=== PATIENT | male | born 1975 | race Caucasian/White ===

== ENCOUNTER → 2018-03-02 | Outpatient (CLI) | payer OTHER ==
[2018-03-02 18:26] LABS: ALT 60 U/L (21-72); AST 39 U/L (17-59); Albumin 4.5 g/dL (3.5-5.0); Alkaline Phosphatase 98 U/L (38-126); Anion Gap 15 mmol/L; Blood Urea Nitrogen 22 mg/dL (9-20); Calcium 9.8 mg/dL (8.4-10.2); Carbon Dioxide 25 mmol/L (22-30); Chloride 104 mmol/L (98-107); Cholesterol 254 mg/dL (<200); Glucose 93 mg/dL (74-99); HDL Cholesterol 34 mg/dL (40-60); Potassium 4.7 mmol/L (3.5-5.1); Sodium 144 mmol/L (137-145); Total Bilirubin 0.7 mg/dL (0.2-1.3); Total Protein 7.7 g/dL (6.3-8.2)
[2018-03-02 18:35] LABS: Basophils % (A) 0 %; Eosinophils # (A) 0.3 k/uL (0-0.7); Eosinophils % (A) 3 %; HCT 45.2 % (39.0-53.0); HGB 14.6 gm/dL (13.0-17.5); Lymphocytes # (A) 2.4 k/uL (1.0-4.8); Lymphocytes % (A) 25 %; MCH 26.9 pg (25.0-35.0); MCHC 32.2 g/dL (31.0-37.0); MCV 83.4 fL (80.0-100.0); Mean Platelet Volume 7.3; Monocytes # (A) 0.7 k/uL (0-1.0); Monocytes % (A) 7 %; Neutrophils # (A) 6.1 k/uL (1.3-7.7); Neutrophils % (A) 62 %; Platelet Count 256 k/uL (150-450); RBC 5.43 m/uL (4.30-5.90); RDW 13.6 % (11.5-15.5); WBC 9.7 k/uL (3.8-10.6)
[2018-03-02 18:42] LABS: T4, Free (Free Thyroxine) 0.99 ng/dL (0.78-2.19)
[2018-03-03 13:31] LABS: Triglycerides 616 mg/dL (<150)
== END ==
LOC: MMGSC 15:10
PROVIDERS: ATTEND Family Medicine
DX: E55.9 Vitamin D deficiency, unspecified (principal); R07.89 Other chest pain; G47.30 Sleep apnea, unspecified; R63.5 Abnormal weight gain
CPT/HCPCS: 36415; 80053; 80061; 82306; 83721; 84439; 84443; 85025

== ENCOUNTER → 2018-03-03 | Outpatient (CLI) | payer OTHER ==
--- NOTE | 2018-03-03 13:57 | XR ---
EXAMINATION TYPE: XR chest 2V DATE OF EXAM: 03/03/2018 COMPARISON: NONE HISTORY: Chest pain a few days ago. TECHNIQUE: Frontal and lateral views of the chest are obtained. FINDINGS: Exam is slightly suboptimal secondary to patient's large body habitus. There is no focal a ir space opacity, pleural effusion, or pneumothorax seen. The cardiac silhouette size is within norm al limits. The osseous structures are intact. IMPRESSION: No acute cardiopulmonary process.
== END | disposition home or self-care (01) ==
LOC: RADXRMAIN 13:33
PROVIDERS: ATTEND Family Medicine
DX: R07.89 Other chest pain (principal)
CPT/HCPCS: 71046

== ENCOUNTER → 2018-03-08 | Outpatient (CLI) | payer OTHER ==
[~2018-03-08] MED LIST: REGADENOSON 0.4 MG/5 ML SYRINGE IV ONE
--- NOTE | 2018-03-08 15:27 | NM ---
EXAMINATION TYPE: NM stress lexiscan cardiolite DATE OF EXAM: 03/08/2018 COMPARISON: NONE HISTORY: 42-year-old male atypical chest pain, abnormal EKG TECHNIQUE: After the intravenous administration of 9.9 mCi Tc 99m Sestamibi - Cardiolite resting SPE CT images acquired 50 minutes post injection. The patient received 0.4mg Lexiscan, 26.4 mCi Tc 99m Sestamibi - Stress images obtained [address] injection FINDINGS: Review of stress and rest SPECT images demonstrates decreased perfusion along the inferior and infero lateral wall that appears fixed. Prominent adjacent GI activity is present. On gated analysis, diffic ult to exclude some hypokinesis here. Estimated left ventricular ejection fraction of 52 %. TID is c alculated at 0.95, within normal limits. IMPRESSION: Fixed perfusion abnormality along the inferior and inferolateral wall could represent old infarct or artifact related to prominent adjacent GI activity. Further clinical and EKG correlation recommended.
--- NOTE | 2018-03-09 11:07 | EST ---
EXERCISE STRESS DATE OF STUDY: 03/08/2018 AGE: 42 SEX: Male HT: 5 feet 11 inches WT: 305 pounds PROTOCOL: Lexiscan, Cardiolite STAGE: DURATION OF EXERCISE: HEART RATE REST: 82 BLOOD PRESSURE REST: 141/86 MAXIMUM HEART RATE ACHIEVED: 111 MAXIMUM BLOOD PRESSURE: 142/83 85% MPHR: 150 100% MPHR: 177 METS: INDICATIONS: Chest pain, abnormal EKG. CLINICAL INFORMATION: STRESS DATA: Pre-testing physical examination showed a heart rate of 82, blood pressure 141/86 mmHg. Baseline EKG shows sinus mechanism. Lexiscan 0.4 mg was given to the patient over 15 seconds per protocol. Maximum heart rate was 111 beats per minute and maximum blood pressure was 142/83 mmHg. Clinically the patient did not have any symptoms of chest pain or discomfort during the testing or in the recovery and the EKG did not show any significant ST or T-wave abnormalities consistent with ischemia. CONCLUSION: 1. Non-diagnostic electrocardiogram stress testing in response to Lexiscan. 2. Please follow up on the Cardiolite portion on separate report from the radiology department. MMODL / IJN: [id number] /
== END ==
LOC: RADNMMAIN 08:09
PROVIDERS: ATTEND Family Medicine
DX: R07.89 Other chest pain (principal); R94.31 Abnormal electrocardiogram [ECG] [EKG]
CPT/HCPCS: 93017; 78452; A9500; J2785

== ENCOUNTER → 2018-07-06 | Outpatient (CLI) | payer OTHER ==
--- NOTE | 2018-07-06 16:13 | PN ---
PROGRESS NOTE DATE OF SERVICE: 07/06/2018 This patient is a 42-year-old gentleman who has been followed in the sleep center for treatment of obstructive sleep apnea-hypopnea syndrome. Patient is successfully continuing to use his CPAP equipment every night for the whole night. No snoring with the machine. No sleepiness during the day. [place] Sleepiness Scale today is 12, still a little bit increased. I checked his CPAP unit. Usage is 100% of the time, average 7.6 hours per night. Pressure is 10.2 cm of water. The machine is in automatic regimen with range of pressure 9 to 20. Apnea-hypopnea index reading is only 0.1. MEDICATIONS: None. PHYSICAL EXAMINATION: GENERAL A pleasant gentleman in no distress. VITAL SIGNS: BP 113/65, HR 88, RR 16, height 5 feet 9 inches, weight 291, BMI 42.9. Temperature 98.3. Oxygen saturation at room air 97%. HEENT: PERRLA, EOMI. Evaluation of oropharynx showed tongue protrudes midline; extremely low position of soft palate. NECK: Supple. No JVD. Thyroid is not palpable. LUNGS: Clear to percussion and to auscultation. Good air exchange. No wheezing or rhonchi. HEART: S1, S2 regular. No murmurs, gallops or rubs. ABDOMEN: Obese. EXTREMITIES : No clubbing or cyanosis. PRINCIPAL PLANNER: Awake, alert, and oriented X3. Cranial nerves 2 to 7 intact. There is no fasciculation or atrophy. noted. No focal deficits observed. IMPRESSION: 1. Moderate obstructive sleep apnea-hypopnea syndrome, fully under control with CPAP, average pressure 10.2 cm of water. Patient demonstrated 100% compliance with treatment, benefitting from treatment. 2. Obesity. 3. Back problems. 4. Status post tonsillectomy. 5. Status post nasal surgery for nasal septum deviation. PLAN: 1. Patient will continue to use CPAP equipment every night with the same regimen. 2. Losing weight. 3. Sleep hygiene with regular time in bed for at least 8 hours. 4. No driving if feeling any sleepiness. 5. I will maintain prescription for all necessary CPAP supplies. 6. Follow-up visit in one year or earlier if patient has any problems. Thank you very much for allowing me to participate in the management of your patient. Sincerely, Lm Barclay MD, PhD, FAASM Diplomat of [employer] [employer] [facility] [place] MMODL / NAKULN: [id number] /
== END | disposition home or self-care (01) ==
LOC: SLEEP 14:25
PROVIDERS: ATTEND Internal Medicine
DX: G47.33 Obstructive sleep apnea (adult) (pediatric) (principal); E66.9 Obesity, unspecified; Z68.41 Body mass index [BMI] 40.0-44.9, adult; Z90.89 Acquired absence of other organs; Z99.89 Dependence on other enabling machines and devices; Z98.890 Other specified postprocedural states

== ENCOUNTER → 2018-12-08 | Outpatient (CLI) | payer OTHER ==
--- NOTE | 2018-12-08 14:39 | XR ---
EXAMINATION TYPE: XR lumbar spine 2 or 3V DATE OF EXAM: 12/08/2018 CLINICAL HISTORY: Chronic low back pain. TECHNIQUE: Frontal and lateral images of the lumbar spine are obtained. COMPARISON: None FINDINGS: There are 5 lumbar type vertebral bodies identified. The lumbar spine shows straightened alignment without evidence of acute fracture or dislocation. Vertebral body heights and disk space he ights are within normal limits. The overlying soft tissue appears unremarkable. IMPRESSION: Straightening of lumbar spine otherwise unremarkable study.
== END | disposition home or self-care (01) ==
LOC: RADXRMAIN 13:56
PROVIDERS: ATTEND Family Medicine
DX: M54.5 Low back pain (principal)
CPT/HCPCS: 72100

== ENCOUNTER → 2018-12-08 | Outpatient (CLI) | payer OTHER ==
[2018-12-08 14:34] LABS: HCT 40.2 % (39.0-53.0); HGB 12.5 gm/dL (13.0-17.5); MCH 26.8 pg (25.0-35.0); MCHC 31.2 g/dL (31.0-37.0); MCV 85.8 fL (80.0-100.0); Mean Platelet Volume 6.5; Platelet Count 296 k/uL (150-450); RBC 4.68 m/uL (4.30-5.90); RDW 13.6 % (11.5-15.5); WBC 8.8 k/uL (3.8-10.6)
[2018-12-08 20:00] LABS: Albumin/Globulin Ratio 2.22 (1.60-3.17); Anion Gap 5.8 mmol/L (4.00-12.00); Carbon Dioxide 28.2 mmol/L (21.6-31.8); Globulin 1.8 g/dL (1.6-3.3); Potassium 4.5 mmol/L (3.5-5.5); Total Bilirubin 0.3 mg/dL (0.2-1.2); Total Protein 5.8 g/dL (6.2-8.2)
== END | disposition home or self-care (01) ==
LOC: LABWHC1 13:05
PROVIDERS: ATTEND Physical Medicine & Rehabilitation
DX: T39.1X1A Poisoning by 4-Aminophenol derivatives, accidental (unintentional), initial encounter (principal)
CPT/HCPCS: 36415; 80053; 85027

== ENCOUNTER → 2019-03-06 | Outpatient (CLI) | payer OTHER | END | disposition home or self-care (01) | LOC: RADXRMAIN 16:22 | PROVIDERS: ATTEND Pediatrics | DX: Z53.9 Procedure and treatment not carried out, unspecified reason (principal) ==

== ENCOUNTER 2019-05-24 07:34 | Day surgery (SDC) | payer OTHER ==
[2019-05-22 17:21] VITALS: BMI 41.8
--- NOTE | 2019-05-23 22:42 | P.GSHP ---
History of Present Illness H&P Date: 05/24/19 CHIEF COMPLAINT: Rectal bleeding HISTORY OF PRESENT ILLNESS: The patient is a 43-year-old male who presents with rectal bleeding. Lower endoscopy was offered for further evaluation and management. PAST MEDICAL HISTORY: Please see list. PAST SURGICAL HISTORY: Please see list. MEDICATIONS: Please see list. ALLERGIES: Please see list. SOCIAL HISTORY: No illicit drug use FAMILY HISTORY: No reports of Crohn disease or ulcerative colitis. REVIEW OF ORGAN SYSTEMS: CONSTITUTIONAL: No reports of fevers or chills. PHYSICAL EXAM: VITAL SIGNS: Stable GENERAL: Well-developed pleasant in no acute distress. HEENT: No scleral icterus. Extraocular movements grossly intact. Moist buccal mucosa. NECK: Supple without lymphadenopathy. CHEST: Unlabored respirations. Equal bilateral excursions. CARDIOVASCULAR: Regular rate and rhythm. Distal 2+ pulses. ABDOMEN: Soft, nontender, nondistended. MUSCULOSKELETAL: No clubbing, cyanosis, or edema. ASSESSMENT: 1. Rectal bleeding PLAN: 1. Recommend proceeding with a lower endoscopy Past Medical History Past Medical History: Hyperlipidemia, Musculoskeletal Disorder, Osteoarthritis (OA), Sleep Apnea/CPAP/BIPAP Additional Past Medical History / Comment(s): umbilical hernia, constipation, Multiple hereditary exostoses History of Any Multi-Drug Resistant Organisms: None Reported Additional Past Surgical History / Comment(s): "benign blood tumor removed from rt leg", Past Anesthesia/Blood Transfusion Reactions: Motion Sickness Smoking Status: Never smoker - Past Family History Sister(s) Family Medical History: Cancer Mother Family Medical History: Deep Vein Thrombosis (DVT), Pulmonary Embolus Medications and Allergies Home Medications Medication Instructions Recorded Confirmed Type Atorvastatin [Lipitor] 40 mg PO W/SUPPER 05/22/19 05/22/19 History Cholecalciferol (Vitamin D3) 5,000 unit PO DAILY 05/22/19 05/22/19 History [Vitamin D3] Fenofibrate [Lofibra] 160 mg PO W/SUPPER 05/22/19 05/22/19 History Ibuprofen 800 mg PO BID PRN 05/22/19 05/22/19 History Multivitamins, Thera [Multivitamin 1 tab PO DAILY 05/22/19 05/22/19 History (formulary)] traMADol HCL [Ultram] 50 mg PO QID 05/22/19 05/22/19 History Allergies Allergy/AdvReac Type Severity Reaction Status Date / Time No Known Allergies Allergy Verified 05/22/19 17:12
[~2019-05-24 07:34] MED LIST changes: +LACTATED RINGERS 1,000 ML IV SCH; +LIDOCAINE 1% 20 ML VIAL (10MG/ML) FOR IV START INTRADERMA PRN; -REGADENOSON 0.4 MG/5 ML SYRINGE IV ONE
[2019-05-24 07:47] VITALS: TEMP 97
[2019-05-24] MEDS ORDERED: PROPOFOL 10 MG/ML 20 ML VIAL IV ONE (08:21)
--- NOTE | 2019-05-24 08:46 | P.PCN ---
Date of Procedure: 05/24/19 Description of Procedure: PREOPERATIVE DIAGNOSIS: Rectal bleeding Change in bowel habits POSTOPERATIVE DIAGNOSIS: Rectal bleeding Change in bowel habits Diverticulosis, scattered Anal fissure, chronic OPERATION: Colonoscopy to the ileocecal valve and appendiceal orifice. SURGEON: Geraldine Kincaid MD. ANESTHESIA: MAC. INDICATIONS: The patient is a 43-year-old male who presents for colonoscopy screening. Benefits and risks were described and informed consent was obtained. DESCRIPTION OF PROCEDURE: The patient had undergone Suprep. He had been brought into the operating room and laid in the left lateral decubitus position. After adequate intravenous sedation, the rectum was examined with 2% lidocaine jelly. No external hemorrhoids were encountered. The rectal tone was within normal limits. No lesions were palpated in the rectal vault. An Olympus colonoscope was advanced until the ileocecal valve and appendiceal orifice were clearly viewed. The prep was excellent with clear visualization of the mucosal folds. The scope was removed with visualization of each mucosal fold. Scattered diverticulosis was encountered. No colonic polyps were found. No evidence of focal colitis was found. Retroflexion of the scope demonstrated grade 1 internal hemorrhoids without active bleeding or inflammation. A small anal fissure 2 were identified. The colon was desufflated. The patient had tolerated the procedure well. Withdrawal time was over 6 minutes. FINDINGS: Aronchick preparation quality scale 1 (1-5) Internal hemorrhoids, grade 1 No external prolapsed hemorrhoids. No arteriovenous malformations. No adenomatous polyps. No focal colitis. Anal fissure 2 chronic RECOMMENDATIONS: Lower endoscopy at age 49, 2023 Plan - Discharge Summary Discharge Rx Participant: No New Discharge Prescriptions: No Action traMADol HCL [Ultram] 50 mg PO QID Fenofibrate [Lofibra] 160 mg PO W/SUPPER Atorvastatin [Lipitor] 40 mg PO W/SUPPER Ibuprofen 800 mg PO BID PRN PRN Reason: Pain Multivitamins, Thera [Multivitamin (formulary)] 1 tab PO DAILY Cholecalciferol (Vitamin D3) [Vitamin D3] 5,000 unit PO DAILY Discharge Medication List Atorvastatin [Lipitor] 40 mg PO W/SUPPER 05/22/19 [History] Cholecalciferol (Vitamin D3) [Vitamin D3] 5,000 unit PO DAILY 05/22/19 [History] Fenofibrate [Lofibra] 160 mg PO W/SUPPER 05/22/19 [History] Ibuprofen 800 mg PO BID PRN 05/22/19 [History] Multivitamins, Thera [Multivitamin (formulary)] 1 tab PO DAILY 05/22/19 [History] traMADol HCL [Ultram] 50 mg PO QID 05/22/19 [History] Follow up Appointment(s)/Referral(s): Geraldine Kincaid MD [STAFF PHYSICIAN] - 06/12/19 Patient Instructions/Handouts: Anal Fissure (DC), Diverticulosis Diet (GEN), Diverticulosis (DC) Activity/Diet/Wound Care/Special Instructions: Repeat colonoscopy at the age of 49 Discharge Disposition: HOME SELF-CARE
[2019-05-24 09:02] VITALS: BP 108/68; PULSE 91; RESP 16
== END 2019-05-24 09:36 | disposition home or self-care (01) ==
LOC: ORWHC2ENDO 07:34
PROVIDERS: ATTEND Surgery Plastic and Reconstructive Surgery
DX: Z12.11 Encounter for screening for malignant neoplasm of colon (principal); K57.30 Diverticulosis of large intestine without perforation or abscess without bleeding; K64.0 First degree hemorrhoids; K60.2 Anal fissure, unspecified; E78.5 Hyperlipidemia, unspecified; M19.90 Unspecified osteoarthritis, unspecified site; G47.30 Sleep apnea, unspecified; Z99.89 Dependence on other enabling machines and devices; Z79.1 Long term (current) use of non-steroidal anti-inflammatories (NSAID); Z79.899 Other long term (current) drug therapy; E66.01 Morbid (severe) obesity due to excess calories; Z68.41 Body mass index [BMI] 40.0-44.9, adult
CPT/HCPCS: J2704; G0121

== ENCOUNTER → 2019-05-28 | Outpatient (CLI) | payer OTHER ==
--- NOTE | 2019-05-28 21:47 | CT ---
EXAMINATION TYPE: CT abdomen pelvis w con DATE OF EXAM: 05/28/2019 COMPARISON: None. HISTORY: Umbilical hernia with tenderness. CT DLP: 3888 mGycm, Automated Exposure Control for Dose Reduction was Utilized. CONTRAST: CT scan of the abdomen and pelvis is performed with oral and with IV Contrast, patient injected with 100 mL of Isovue 300. FINDINGS: LUNG BASES: No significant abnormality is appreciated. LIVER/GB: Dependent small calcified gallstone. Diffuse fatty infiltration of liver. PANCREAS: No significant abnormality is seen. SPLEEN: No significant abnormality is seen. ADRENALS: No significant abnormality is seen. KIDNEYS: No renal stones or hydronephrosis. Right-sided inferior pelvic phlebolith. BOWEL: Oral contrast does not reach terminal ileum making evaluation of distal bowel slightly subopti mal. No suspicious small and large bowel dilatation. PROSTATE/SEMINAL VESICLES: No gross abnormality seen. LYMPH NODES: No greater than 1cm abdominal or pelvic lymph nodes are appreciated. OSSEOUS STRUCTURES: Mild to moderate narrowing with mild spurring both hip joints is seen somewhat pr ominent for patient's age. OTHER: There is moderate-sized narrow neck paraumbilical hernia containing fat and tiny mesenteric ve ssels. No significant ill-defined fluid or fat stranding is noted. IMPRESSION: Moderate size Paraumbilical hernia without suspicious fat stranding or fluid to suggest i ncarceration or inflammation.
== END | disposition home or self-care (01) ==
LOC: RADCTMAIN 15:44
PROVIDERS: ATTEND Surgery Plastic and Reconstructive Surgery
DX: K42.9 Umbilical hernia without obstruction or gangrene (principal)
CPT/HCPCS: 74177; Q9967

== ENCOUNTER → 2019-07-16 | Outpatient (CLI) | payer OTHER | END | disposition home or self-care (01) | LOC: LABPAT 10:27 | PROVIDERS: ATTEND Surgery Plastic and Reconstructive Surgery | DX: Z01.810 Encounter for preprocedural cardiovascular examination (principal) | CPT/HCPCS: 93005 ==

== ENCOUNTER 2019-07-20 07:31 | Day surgery (SDC) | payer OTHER ==
[2019-07-18 17:54] VITALS: BMI 41.8
--- NOTE | 2019-07-20 06:19 | P.GSHP ---
History of Present Illness H&P Date: 07/20/19 CHIEF COMPLAINT: Cholecystitis HISTORY OF PRESENT ILLNESS: The patient is a 43-year-old male who presents with history of epigastric including right upper quadrant abdominal pain. He underwent diagnostic studies for her gallbladder. Separately clinical picture was consistent with cholecystitis. Now he presents for surgical intervention. PAST MEDICAL HISTORY: Please see list PAST SURGICAL HISTORY: Please see list MEDICATIONS: Please see list ALLERGIES: Please see list SOCIAL HISTORY: Please see list FAMILY HISTORY: Pertinent for gallbladder disease REVIEW OF ORGAN SYSTEMS: CONSTITUTIONAL: No reports of fevers or chills. HEENT: Denies any troubles with the vision or hearing. PHYSICAL EXAM: VITAL SIGNS: Afebrile vital signs stable GENERAL: Well-developed pleasant in no acute distress. HEENT: No scleral icterus. Extraocular movements grossly intact. Moist buccal mucosa. NECK: Supple without lymphadenopathy. CHEST: Unlabored respirations. Equal bilateral excursions. CARDIOVASCULAR: Regular rate regular rhythm rhythm. Distal 2+ pulses. ABDOMEN: Soft, nondistended. Tender along the epigastrium and right upper quadrant. MUSCULOSKELETAL: No clubbing, cyanosis, or edema. NEURO: Cranial nerves II to XII within normal limits. No focal or lateralizing signs. PSYCH: Alert and oriented to person, place and time. SKIN: Well-perfused good skin turgor. ASSESSMENT: 1. Epigastric and right upper quadrant abdominal pain 2. Chronic cholecystitis 3. Symptomatic gallstones. PLAN: 1. Will need a robotic cholecystectomy possible open. Benefits and risks were described. 2. Heparin for DVT prophylaxis 5000 units. 3. Antibiotic prophylaxis. Past Medical History Past Medical History: Hyperlipidemia, Musculoskeletal Disorder, Osteoarthritis (OA), Sleep Apnea/CPAP/BIPAP Additional Past Medical History / Comment(s): Umbilical hernia, constipation, Multiple hereditary exostosis (benign bone tumors), uses auto-pap, varicose veins. History of Any Multi-Drug Resistant Organisms: None Reported Additional Past Surgical History / Comment(s): "benign blood tumor removed from rt leg", nasal repair surg, colonoscopy Past Anesthesia/Blood Transfusion Reactions: Motion Sickness Smoking Status: Never smoker - Past Family History Sister(s) Family Medical History: Cancer Mother Family Medical History: Deep Vein Thrombosis (DVT), Pulmonary Embolus Medications and Allergies Home Medications Medication Instructions Recorded Confirmed Type Atorvastatin [Lipitor] 40 mg PO W/SUPPER 05/22/19 07/18/19 History Cholecalciferol (Vitamin D3) 5,000 unit PO DAILY 05/22/19 07/18/19 History [Vitamin D3] Fenofibrate [Lofibra] 160 mg PO W/SUPPER 05/22/19 07/18/19 History Ibuprofen 800 mg PO BID PRN 05/22/19 07/18/19 History Multivitamins, Thera [Multivitamin 1 tab PO DAILY 05/22/19 07/18/19 History (formulary)] Topiramate [Topamax] 50 mg PO HS 07/18/19 07/18/19 History oxyCODONE-APAP 5-325MG [Percocet 1 tab PO QID PRN 07/18/19 07/18/19 History 5-325 mg] Allergies Allergy/AdvReac Type Severity Reaction Status Date / Time No Known Allergies Allergy Verified 07/18/19 17:38
[~2019-07-20 07:31] MED LIST changes: +DEXAMETHASONE SOD PHOSPHATE 10 MG/ML 1 ML VIAL IV ONE; +HEPARIN SODIUM,PORCINE 5,000 UNIT/ML 1 ML VIAL SQ ONE; +INDOCYANINE GREEN 25 MG VIAL IV STA; -LACTATED RINGERS 1,000 ML IV SCH; -LIDOCAINE 1% 20 ML VIAL (10MG/ML) FOR IV START INTRADERMA PRN; +MIDAZOLAM 2 MG/2 ML VIAL IV PRN; +ONDANSETRON 4 MG/2 ML VIAL IVP ONE; +ceFAZolin 3 GM in SODIUM CHLORIDE 0.9% 100 ML IVPB ONE
[2019-07-20] MEDS: LACTATED RINGERS 1,000 ML IV SCH ×2 (08:05→08:29)
[2019-07-20] MEDS ORDERED: LIDOCAINE 1% 20 ML VIAL (10MG/ML) FOR IV START INTRADERMA ONE (08:06)
[2019-07-20] MEDS ORDERED: SCOPOLAMINE 1.5MG/72HR PATCH TRANSDERM STA (08:20)
[2019-07-20] MEDS ORDERED: SCOPOLAMINE 1.5MG/72HR PATCH TRANSDERM ONE (08:22)
[2019-07-20 08:28] LABS: Basophils % (A) 0 %; Eosinophils # (A) 0.3 k/uL (0-0.7); Eosinophils % (A) 4 %; HCT 44.3 % (39.0-53.0); HGB 14.3 gm/dL (13.0-17.5); Lymphocytes # (A) 2.1 k/uL (1.0-4.8); Lymphocytes % (A) 29 %; MCH 27.7 pg (25.0-35.0); MCHC 32.2 g/dL (31.0-37.0); MCV 85.8 fL (80.0-100.0); Mean Platelet Volume 6.8; Monocytes # (A) 0.4 k/uL (0-1.0); Monocytes % (A) 6 %; Neutrophils # (A) 4.1 k/uL (1.3-7.7); Neutrophils % (A) 57 %; Platelet Count 301 k/uL (150-450); RBC 5.16 m/uL (4.30-5.90); RDW 15.3 % (11.5-15.5); WBC 7.3 k/uL (3.8-10.6)
[2019-07-20] MEDS ORDERED: LIDOCAINE 1% INJ 10MG/ML (20 ML MDV) ONE (08:28)
[2019-07-20] MEDS ORDERED: GLYCOPYRROLATE 0.2 MG/ML 2 ML VIAL ONE (08:28)
[2019-07-20] MEDS ORDERED: PROPOFOL 10 MG/ML 20 ML VIAL IV ONE (08:28)
[2019-07-20] MEDS ORDERED: NEOSTIGMINE 1 MG/ML 10 ML VIAL ONE (08:28)
[2019-07-20] MEDS ORDERED: INDOCYANINE GREEN 25 MG VIAL IV ONE (08:28)
[2019-07-20] MEDS ORDERED: ROCURONIUM BROMIDE 10 MG/ML 10 ML VIAL IV ONE (08:28)
[2019-07-20] MEDS ORDERED: fentaNYL (PF) 50 MCG/ML 2 ML AMP ONE (08:28)
[2019-07-20] MEDS ORDERED: SUCCINYLCHOLINE CHLORIDE 100 MG/5 ML SYR IV ONE (08:28)
[2019-07-20] MEDS ORDERED: MIDAZOLAM 2 MG/2 ML VIAL ONE (08:28)
[2019-07-20 08:37] LABS: ALT 60 U/L (21-72); AST 38 U/L (17-59); African American GFR (CKD) >90 (>60 ml/min/1.73 sqM); Albumin 4.5 g/dL (3.5-5.0); Alkaline Phosphatase 57 U/L (38-126); Anion Gap 12 mmol/L; Blood Urea Nitrogen 22 mg/dL (9-20); Calcium 9.6 mg/dL (8.4-10.2); Carbon Dioxide 21 mmol/L (22-30); Chloride 111 mmol/L (98-107); Glucose 105 mg/dL (74-99); Potassium 4.2 mmol/L (3.5-5.1); Sodium 144 mmol/L (137-145); Total Bilirubin 0.5 mg/dL (0.2-1.3); Total Protein 7.6 g/dL (6.3-8.2)
[2019-07-20] MEDS ORDERED: BUPIVACAIN-EPI 0.25%-1:200,000 30 ML VIAL SQ ONE (08:49)
--- NOTE | 2019-07-20 10:11 | P.OP ---
Date of Procedure: 07/20/19 Description of Procedure: SURGEON: GERALDINE KINCAID MD PREOPERATIVE DIAGNOSES: 1. Symptomatic gallstones 2. Morbid obesity due to excess calories, BMI 41.6 3. Chronic cholecystitis 4. Hypertensive heart disease 5. Chronic pain syndrome 6. Obstructive sleep apnea POSTOPERATIVE DIAGNOSES: 1. Symptomatic gallstones 2. Morbid obesity due to excess calories, BMI 41.6 3. Chronic cholecystitis 4. Hypertensive heart disease 5. Chronic pain syndrome 6. Obstructive sleep apnea 7. Fatty liver disease with hepatomegaly OPERATION: Robotic-assisted da Bill Xi laparoscopic lysis of adhesions over 30 minutes Robotic-assisted da Bill Xi laparoscopic cholecystectomy, multiport with FIREFLY ESTIMATED BLOOD LOSS: 20 mL. SPECIMENS REMOVED: Gallbladder. COMPLICATIONS: None. OPERATIVE FINDINGS: 1. Chronic cholecystitis 2. Console time 41 minutes INDICATIONS: The patient is a 43-year-old male who presents with gallstones. Surgical intervention with a laparoscopic cholecystectomy was described at length including injury to the biliary tree, bleeding, infection, need for further surgery. Informed consent was obtained. Robotic assisted laparoscopic approach was described. Benefits and risks of the procedure including but not limited to bleeding, infection, injury to the biliary tree was described. Informed consent was obtained. DESCRIPTION OF PROCEDURE: Patient was brought to the operating room, placed in supine position. After general induction, the abdomen had been prepped and draped in standard sterile fashion. The robotic da Bill XI system was primed. After a timeout protocol was performed, the patient had been prepped and draped in standard sterile fashion. The patient was injected with indocyanine green. A 5 mm 0 degrees laparoscopic trocar entry was performed along the left upper quadrant. The abdomen insufflated to 15 mmHg pressure which was tolerated well. Diagnostic laparoscopy demonstrated no injury to bowel viscera or mesentery. The liver surface was unremarkable. Next, two 8 mm robotic ports were placed along the right upper abdomen. The camera 8-mm port was maintained along the epigastrium. Another 8 mm port was placed along the left upper abdominal wall after exchanging the 5 mm port. Please note that the ports were placed at least 10 to 15 cm away from the target anatomy of the gallbladder. The robot was docked along the left lateral abdomen. The patient was repositioned in reverse Trendelenburg position. Using a grasper for arm 3, a grasper for arm 4, including hook cautery for arm 1, the robotic system was docked and primed as described. Instruments were interchanged by the financial legal assistant including hook cautery, Bovie cautery and clip appliers. I had sat at the console. The liver was moderately enlarged limiting with fatty liver disease adding moderate complexity to the case with exposure. Additionally moderate omental adhesions to the gallbladder body and infunbidulum was performed for 30 minutes for lysis of adhesions. A dome down technique was performed. The gallbladder fundus was retracted over the dome of the liver. Initial attention was brought to the infundibulum which was gently retracted in the inferior lateral approach. Using a grasper, the cystic duct including the cystic artery was carefully skeletonized. FIREFLY was used to identify the cystic artery and cystic structures. A critical view of safety was obtained. Large PLASTIC clips were used throughout the entire case. Using a clip chief of safety and protection 2 clips were placed proximally, and 1 clip was placed between the infundibulum and cystic duct and divided using cautery. Next, the cystic artery was similarly clipped and cauterized. Electro-Bovie cautery was used to remove the gallbladder from the hepatic fossa. Hemostasis was checked and found to be adequate. The robot was undocked. I re-scrubbed into the case. Using a 10 mm Endo Catch bag via the left upper quadrant incision, the specimen was removed from the abdominal cavity. All pneumoperitoneum instruments were evacuated from the abdominal cavity. The incisions were reapproximated using 4-0 Monocryl in an interrupted subcuticular fashion. Fascial defects were less than 8 mm in size. Please note along the trocar sites, local anesthetic was placed as a field block prior to insertion of all instruments. Liquid glue was applied to the skin. At the end of the procedure needle, sponge, and instrument count had been verified correct by the surgical services tech. The patient was transferred to postanesthesia care unit in stable condition. Intraoperative films were shared with the patient's family who were very pleased with the level of care. COMPLEXITY: Moderate complexity added for limited view from severe hepatomegaly and careful dissection using FIREFLY. Case time extended over 30 minutes with lysis of adhesions for removal of the gallbladder. Plan - Discharge Summary Discharge Rx Participant: Yes New Discharge Prescriptions: New Ibuprofen 800 mg PO Q8HR PRN #30 tablet PRN Reason: Pain No Action Fenofibrate [Lofibra] 160 mg PO W/SUPPER Atorvastatin [Lipitor] 40 mg PO W/SUPPER Ibuprofen 800 mg PO BID PRN PRN Reason: Pain Multivitamins, Thera [Multivitamin (formulary)] 1 tab PO DAILY Cholecalciferol (Vitamin D3) [Vitamin D3] 5,000 unit PO DAILY Topiramate [Topamax] 50 mg PO HS oxyCODONE-APAP 5-325MG [Percocet 5-325 mg] 1 tab PO QID PRN PRN Reason: Pain Discharge Medication List Atorvastatin [Lipitor] 40 mg PO W/SUPPER 05/22/19 [History] Cholecalciferol (Vitamin D3) [Vitamin D3] 5,000 unit PO DAILY 05/22/19 [History] Fenofibrate [Lofibra] 160 mg PO W/SUPPER 05/22/19 [History] Ibuprofen 800 mg PO BID PRN 05/22/19 [History] Multivitamins, Thera [Multivitamin (formulary)] 1 tab PO DAILY 05/22/19 [History] Topiramate [Topamax] 50 mg PO HS 07/18/19 [History] oxyCODONE-APAP 5-325MG [Percocet 5-325 mg] 1 tab PO QID PRN 07/18/19 [History] Ibuprofen 800 mg PO Q8HR PRN #30 tablet 07/20/19 [Rx] Follow up Appointment(s)/Referral(s): Geraldine Kincaid MD [STAFF PHYSICIAN] - 07/24/19 Patient Instructions/Handouts: *Surgery [facility] - Scopalamine Patch Instructions, Laparoscopic Cholecystectomy (DC) Activity/Diet/Wound Care/Special Instructions: No lifting over 10 pounds for 10 days, 07/30/19. May shower. No bathtub soaks for 10 days until 07/30/19. Low fat diet Discharge Disposition: HOME SELF-CARE
[2019-07-20 10:21] VITALS: TEMP 97.8
[2019-07-20] MEDS: HYDROmorphone 0.5 MG/0.5 ML SYRINGE IVP PRN ×2 (10:28→10:36)
[2019-07-20] MEDS ORDERED: LACTATED RINGERS 1,000 ML IV ONE (10:56)
[2019-07-20] MEDS ORDERED: TAMSULOSIN 0.4 MG CAP.ER.24H PO ONE (11:00)
[2019-07-20] MEDS ORDERED: oxyCODONE-APAP 5-325MG 1 EACH TAB PO ONE (12:05)
[2019-07-20 12:45] VITALS: BP 125/79; PULSE 83; RESP 18
== END 2019-07-20 12:41 | disposition home or self-care (01) ==
LOC: OR 07:31
PROVIDERS: ATTEND Surgery Plastic and Reconstructive Surgery
DX: K80.10 Calculus of gallbladder with chronic cholecystitis without obstruction (principal); K66.0 Peritoneal adhesions (postprocedural) (postinfection); G47.33 Obstructive sleep apnea (adult) (pediatric); E66.01 Morbid (severe) obesity due to excess calories; G89.4 Chronic pain syndrome; I11.9 Hypertensive heart disease without heart failure; K76.0 Fatty (change of) liver, not elsewhere classified; Z68.41 Body mass index [BMI] 40.0-44.9, adult; Z79.899 Other long term (current) drug therapy; Z90.49 Acquired absence of other specified parts of digestive tract; E78.5 Hyperlipidemia, unspecified; M19.90 Unspecified osteoarthritis, unspecified site; Z99.89 Dependence on other enabling machines and devices; Z84.89 Family history of other specified conditions; Z79.891 Long term (current) use of opiate analgesic
CPT/HCPCS: 88304; 80053; 85025; 47562; 49329; J2250; J1644; J1100; J2710; J0690; J2405; J2001; J3010; J0330; J2704; J1170

== ENCOUNTER 2020-11-26 16:26 | Inpatient (IN) | payer OTHER ==
[2020-11-26] MEDS ORDERED: SODIUM CHLORIDE 0.9% 500 ML 500 ML IV STA (16:49)
--- NOTE | 2020-11-26 17:45 | ED ---
SOB HPI - General Chief Complaint: Shortness of Breath Stated Complaint: SOB Time Seen by Provider: 11/26/20 16:49 Source: patient Mode of arrival: wheelchair Limitations: no limitations - History of Present Illness Initial Comments: 45-year-old male presenting to the emergency department with a chief complaint of shortness of breath. Patient states he's developed shortness of breath for the past several months but yesterday he felt lightheaded and short of breath after he was going upstairs. Never lost consciousness. He states ever since yesterday, he has developed increased dyspnea on exertion. Denies any associated shortness of breath, dizziness, diaphoretic episodes, gait instability, blurry vision, one-sided weakness or paresthesias. Denies history of smoking or asthma. Denies any wheezing. States he saw his primary care physician who advised him to come to emergency department for further evaluation. - Related Data Home Medications Medication Instructions Recorded Confirmed Atorvastatin [Lipitor] 40 mg PO W/SUPPER 05/22/19 11/26/20 Fenofibrate [Lofibra] 160 mg PO W/SUPPER 05/22/19 11/26/20 Topiramate [Topamax] 50 mg PO HS 07/18/19 11/26/20 oxyCODONE-APAP 5-325MG [Percocet 1 tab PO QID 07/18/19 11/26/20 5-325 mg] Cyclobenzaprine [Flexeril] 10 mg PO HS 11/26/20 11/26/20 Diclofenac Sodium [Voltaren] 75 mg PO TID 11/26/20 11/26/20 Allergies Allergy/AdvReac Type Severity Reaction Status Date / Time heparin Allergy Unknown Verified 11/26/20 19:00 Review of Systems ROS Statement: Those systems with pertinent positive or pertinent negative responses have been documented in the HPI. ROS Other: All systems not noted in ROS Statement are negative. Past Medical History Past Medical History: Diabetes Mellitus, Hyperlipidemia, Musculoskeletal Disorder, Osteoarthritis (OA), Sleep Apnea/CPAP/BIPAP Additional Past Medical History / Comment(s): Umbilical hernia, constipation, Multiple hereditary exostosis (benign bone tumors), uses auto-pap, varicose veins. History of Any Multi-Drug Resistant Organisms: None Reported Additional Past Surgical History / Comment(s): "benign blood tumor removed from rt leg", nasal repair surg, colonoscopy Past Anesthesia/Blood Transfusion Reactions: Motion Sickness Past Psychological History: No Psychological Hx Reported Smoking Status: Never smoker Past Alcohol Use History: None Reported Past Drug Use History: None Reported - Past Family History Sister(s) Family Medical History: Cancer Mother Family Medical History: Deep Vein Thrombosis (DVT), Pulmonary Embolus General Exam Limitations: no limitations General appearance: alert, in no apparent distress, obese Head exam: Present: atraumatic, normocephalic, normal inspection Eye exam: Present: normal appearance, PERRL, EOMI Pupils: Present: normal accommodation ENT exam: Present: normal exam, normal oropharynx, mucous membranes moist, TM's normal bilaterally, normal external ear exam Neck exam: Present: normal inspection, full ROM. Absent: tenderness Respiratory exam: Present: normal lung sounds bilaterally. Absent: respiratory distress, wheezes, rales, rhonchi, stridor Cardiovascular Exam: Present: normal rhythm, tachycardia, normal heart sounds GI/Abdominal exam: Present: soft. Absent: distended, tenderness, guarding, rebound Extremities exam: Present: normal inspection, full ROM, normal capillary refill, pedal edema (+1 nonpitting edema), other (Palpable DP and PT bilaterally.). Absent: tenderness, joint swelling, calf tenderness (Negative Homans bilaterally) Back exam: Present: normal inspection, full ROM. Absent: tenderness, CVA tenderness (R), CVA tenderness (L) Neurological exam: Present: alert, oriented X3 Psychiatric exam: Present: normal affect, normal mood Skin exam: Present: warm, dry, intact, normal color Course Vital Signs 11/26/20 11/26/20 11/26/20 16:33 16:47 17:48 Temperature 98 F Pulse Rate 120 H 98 Respiratory 18 18 18 Rate Blood Pressure 138/80 129/72 O2 Sat by Pulse 97 97 Oximetry 11/26/20 19:37 Temperature 98.2 F Pulse Rate 110 H Respiratory 20 Rate Blood Pressure 136/73 O2 Sat by Pulse 98 Oximetry Medical Decision Making - Medical Decision Making 45-year-old male presenting to the emergency department with chief complaint of shortness of breath. On physical examination, patient does not appear to be in significant respiratory distress. Vital signs within normal limits. Oxygen saturation 98%. Chest x-ray showing no acute processes. Patient has an elevated d-dimer of 2. Also elevated troponins at 0.085. EKG showed sinus rhythm. CT angiogram of the chest revealed multiple bilateral upper and lower lobe pulmonary embolisms. cold me with the report. Considering the patient has a heparin ALLERGY. I discussed appropriate anticoagulation therapy with requested that the patient can be started on 10mg Eliquis BID x 7days. Patient will be admitted for further medical management. He will also be the admitting physician. Case was discussed with Dr. Carey. - Lab Data Result diagrams: 11/26/20 17:04 11/26/20 17:04 Lab Results 11/26/20 11/26/20 11/26/20 Range/Units 17:04 17:04 17:04 WBC 9.0 (3.8-10.6) k/uL RBC 5.22 (4.30-5.90) m/uL Hgb 14.4 (13.0-17.5) gm/dL Hct 44.7 (39.0-53.0) % MCV 85.7 (80.0-100.0) fL MCH 27.6 (25.0-35.0) pg MCHC 32.2 (31.0-37.0) g/dL RDW 13.7 (11.5-15.5) % Plt Count 261 (150-450) k/uL MPV 6.7 Neutrophils % 70 % Lymphocytes % 20 % Monocytes % 4 % Eosinophils % 3 % Basophils % 1 % Neutrophils # 6.3 (1.3-7.7) k/uL Lymphocytes # 1.9 (1.0-4.8) k/uL Monocytes # 0.3 (0-1.0) k/uL Eosinophils # 0.3 (0-0.7) k/uL Basophils # 0.1 (0-0.2) k/uL PT 11.2 (9.0-12.0) sec INR 1.1 (<1.2) APTT 22.2 (22.0-30.0) sec D-Dimer 2.06 H (<0.60) mg/L FEU Sodium 143 (137-145) mmol/L Potassium 4.7 (3.5-5.1) mmol/L Chloride 113 H (98-107) mmol/L Carbon Dioxide 22 (22-30) mmol/L Anion Gap 8 mmol/L BUN 25 H (9-20) mg/dL Creatinine 1.06 (0.66-1.25) mg/dL Est GFR (CKD-EPI)AfAm >90 (>60 ml/min/1.73 sqM) Est GFR (CKD-EPI)NonAf 84 (>60 ml/min/1.73 sqM) Glucose 151 H (74-99) mg/dL Calcium 9.6 (8.4-10.2) mg/dL Total Bilirubin 0.5 (0.2-1.3) mg/dL AST 45 (17-59) U/L ALT 69 H (4-49) U/L Alkaline Phosphatase 70 (38-126) U/L Troponin I (0.000-0.034) ng/mL Total Protein 7.4 (6.3-8.2) g/dL Albumin 4.4 (3.5-5.0) g/dL 11/26/20 Range/Units 17:04 WBC (3.8-10.6) k/uL RBC (4.30-5.90) m/uL Hgb (13.0-17.5) gm/dL Hct (39.0-53.0) % MCV (80.0-100.0) fL MCH (25.0-35.0) pg MCHC (31.0-37.0) g/dL RDW (11.5-15.5) % Plt Count (150-450) k/uL MPV Neutrophils % % Lymphocytes % % Monocytes % % Eosinophils % % Basophils % % Neutrophils # (1.3-7.7) k/uL Lymphocytes # (1.0-4.8) k/uL Monocytes # (0-1.0) k/uL Eosinophils # (0-0.7) k/uL Basophils # (0-0.2) k/uL PT (9.0-12.0) sec INR (<1.2) APTT (22.0-30.0) sec D-Dimer (<0.60) mg/L FEU Sodium (137-145) mmol/L Potassium (3.5-5.1) mmol/L Chloride (98-107) mmol/L Carbon Dioxide (22-30) mmol/L Anion Gap mmol/L BUN (9-20) mg/dL Creatinine (0.66-1.25) mg/dL Est GFR (CKD-EPI)AfAm (>60 ml/min/1.73 sqM) Est GFR (CKD-EPI)NonAf (>60 ml/min/1.73 sqM) Glucose (74-99) mg/dL Calcium (8.4-10.2) mg/dL Total Bilirubin (0.2-1.3) mg/dL AST (17-59) U/L ALT (4-49) U/L Alkaline Phosphatase (38-126) U/L Troponin I 0.085 H* (0.000-0.034) ng/mL Total Protein (6.3-8.2) g/dL Albumin (3.5-5.0) g/dL - EKG Data EKG Comments: Sinus tachycardia Ventricular rate 112, NV 132, QRS 86, QTC 446 Disposition Clinical Impression: Multiple pulmonary emboli, Shortness of breath Disposition: ADMITTED IP TO THIS HOSP Condition: Fair Is patient prescribed a controlled substance at d/c from ED?: No Referrals: Mary Duran MD [Primary Care Provider] - 1-2 days Time of Disposition: 20:16
[2020-11-26 18:07] LABS: Basophils # (A) 0.1 k/uL (0-0.2); Basophils % (A) 1 %; Eosinophils # (A) 0.3 k/uL (0-0.7); Eosinophils % (A) 3 %; HCT 44.7 % (39.0-53.0); HGB 14.4 gm/dL (13.0-17.5); Lymphocytes # (A) 1.9 k/uL (1.0-4.8); Lymphocytes % (A) 20 %; MCH 27.6 pg (25.0-35.0); MCHC 32.2 g/dL (31.0-37.0); MCV 85.7 fL (80.0-100.0); Mean Platelet Volume 6.7; Monocytes # (A) 0.3 k/uL (0-1.0); Monocytes % (A) 4 %; Neutrophils # (A) 6.3 k/uL (1.3-7.7); Neutrophils % (A) 70 %; Platelet Count 261 k/uL (150-450); RBC 5.22 m/uL (4.30-5.90); RDW 13.7 % (11.5-15.5)
[2020-11-26 18:20] LABS: ALT 69 U/L (4-49); AST 45 U/L (17-59); African American GFR (CKD) >90 (>60 ml/min/1.73 sqM); Albumin 4.4 g/dL (3.5-5.0); Alkaline Phosphatase 70 U/L (38-126); Anion Gap 8 mmol/L; Blood Urea Nitrogen 25 mg/dL (9-20); Calcium 9.6 mg/dL (8.4-10.2); Carbon Dioxide 22 mmol/L (22-30); Chloride 113 mmol/L (98-107); Glucose 151 mg/dL (74-99); Non-African American GFR(CKD) 84 (>60 ml/min/1.73 sqM); Potassium 4.7 mmol/L (3.5-5.1); Sodium 143 mmol/L (137-145); Total Bilirubin 0.5 mg/dL (0.2-1.3); Total Protein 7.4 g/dL (6.3-8.2)
--- NOTE | 2020-11-26 18:22 | XR ---
EXAMINATION TYPE: XR chest 2V DATE OF EXAM: 11/26/2020 COMPARISON: 03/03/2018 HISTORY: Difficulty breathing TECHNIQUE: FINDINGS: Heart and mediastinum are normal. Lungs are clear of infiltrate. There is no pleural effusi on. There are no hilar masses. There is deformity of the left fifth rib. Thoracic spine is intact. IMPRESSION: No active cardiopulmonary disease. No change.
[2020-11-26 18:53] LABS: INR 1.1 (<1.2); Partial Thromboplastin Time 22.2 sec (22.0-30.0); Prothrombin Time 11.2 sec (9.0-12.0)
[2020-11-26 18:56] LABS: D-Dimer 2.06 mg/L FEU (<0.60)
--- NOTE | 2020-11-26 19:41 | CT ---
EXAMINATION TYPE: CT chest angio for PE DATE OF EXAM: 11/26/2020 COMPARISON: None HISTORY: Elevated d-dimer and shortness of breath. CT DLP: 970.3 mGycm Automated exposure control for dose reduction was used. CONTRAST: Performed with IV Contrast, patient injected with 80ml mL of Isovue 370. There are 3-D post processed images. The lungs are clear of consolidation. There is no evidence of a pulmonary mass. There is no pleural e ffusion. There is no pericardial effusion. Heart size is normal. There is no mediastinal adenopathy. There are no hilar masses. There are multiple large filling defects in the left and right lower lobe pulmonary arteries. These a re larger on the right side. There is probably also involvement of the upper lower lobe pulmonary art eries also. There is spurring in the thoracic spine. I see no compression fracture. There is no bony destructive process. Sternum is intact. There is some fatty infiltration of the liver. There is enlarged right ax illary 1.8 cm lymph node. IMPRESSION: Multiple bilateral upper and lower lobe pulmonary embolism. No evidence of right heart strain. Fatty infiltration of the liver. This exam was discussed with Jp Willis 7:40 PM.
[2020-11-26] MEDS ORDERED: traMADol 50 MG TAB PO PRN (20:11)
[2020-11-26] MEDS ORDERED: NALOXONE 0.4 MG/ML 1 ML VIAL IV PRN (20:11)
[2020-11-26] MEDS ORDERED: ACETAMINOPHEN TAB 325 MG TAB PO PRN (20:11)
[2020-11-26] MEDS ORDERED: HYDROmorphone 0.5 MG/0.5 ML SYRINGE IVP PRN (20:11)
[2020-11-26] MEDS ORDERED: HYDROcodone/APAP 5-325MG 1 EACH TAB PO PRN (20:11)
[2020-11-26] MEDS ORDERED: LORazepam 2 MG/ML INJ IV PRN (20:11)
[2020-11-26] MEDS ORDERED: ONDANSETRON 4 MG/2 ML VIAL IVP PRN (20:11)
[2020-11-26] MEDS: APIXABAN 5 MG TAB PO SCH (21:20)
[2020-11-26] MEDS ORDERED: oxyCODONE-APAP 5-325MG 1 EACH TAB PO SCH (23:30)
--- NOTE | 2020-11-26 23:34 | P.HPIM ---
History of Present Illness H&P Date: 11/26/20 Patient is a 45-year-old male with a PMH of type II DM, hypertension, varicose veins (chronic lower extremity swelling), obstructive sleep apnea, and multiple hereditary osteochondromas who presented to the emergency room with complaints of shortness of breath and palpitations. The patient had gone to his primary care office earlier in the day who subsequently referred him to the emergency room. The patient reported that his symptoms started 1-2 months ago, when he gradually developed exertional dyspnea and decreased exercise tolerance. He did not think much of it until yesterday when he attempted to climb a flight of stairs and became diaphoretic, lightheaded, short of breath, and had associated substernal pressure-like chest discomfort. The patient notes that he occasionally gets the chest discomfort once or twice a week, for the past several months, occurring sporadically, 6-7 out of 10, nonradiating, with and without exertion, nonpleuritic, substernal, lasting for a few minutes at a time and then resolving spontaneously. At time of interview, he reported continued shortness of breath and palpitations. The patient denied recent immobilization's are surgeries in the past 1 year. Also denied recent travel, leg pain, or new lower extremity swelling. Denied recent weight loss (endorsed weight gain instead). Denied nausea, vomiting, fever, chills, cough, abdominal pain. Denied active chest discomfort and noted that it last occurred as he was climbing stairs yesterday. Patient underwent an extensive evaluation in the emergency room with the chest CTA showing multiple bilateral upper and lower lobe PEs with no evidence of right heart strain along with fatty infiltration of the liver. EKG revealed sinus sinus tachycardia @ 112 bpm with no acute ST-T wave changes noted. Laboratory evaluation was reviewed and was remarkable for a d-dimer of 2.06, BUN 25, glucose 151, ALT 69, troponin 0.085, and coronavirus rapid testing negative. Review of Systems Pertinent positives and negatives as discussed in HPI, a complete review of systems was performed and all other systems are negative. Past Medical History Past Medical History: Diabetes Mellitus, Hyperlipidemia, Musculoskeletal Disorder, Osteoarthritis (OA), Sleep Apnea/CPAP/BIPAP Additional Past Medical History / Comment(s): Umbilical hernia, constipation, Multiple hereditary exostosis (benign bone tumors), uses auto-pap, varicose veins. History of Any Multi-Drug Resistant Organisms: None Reported Additional Past Surgical History / Comment(s): "benign blood tumor removed from rt leg", nasal repair surg, colonoscopy Past Anesthesia/Blood Transfusion Reactions: Motion Sickness Past Psychological History: No Psychological Hx Reported Smoking Status: Never smoker Past Alcohol Use History: None Reported Past Drug Use History: None Reported - Past Family History Sister(s) Family Medical History: Cancer Mother Family Medical History: Deep Vein Thrombosis (DVT), Pulmonary Embolus Medications and Allergies Home Medications Medication Instructions Recorded Confirmed Type Atorvastatin [Lipitor] 40 mg PO W/SUPPER 05/22/19 11/26/20 History Fenofibrate [Lofibra] 160 mg PO W/SUPPER 05/22/19 11/26/20 History Topiramate [Topamax] 50 mg PO HS 07/18/19 11/26/20 History oxyCODONE-APAP 5-325MG [Percocet 1 tab PO QID 07/18/19 11/26/20 History 5-325 mg] Cyclobenzaprine [Flexeril] 10 mg PO HS 11/26/20 11/26/20 History Diclofenac Sodium [Voltaren] 75 mg PO TID 11/26/20 11/26/20 History Allergies Allergy/AdvReac Type Severity Reaction Status Date / Time heparin Allergy Unknown Verified 11/26/20 19:00 Physical Exam Vitals: Vital Signs Temp Pulse Resp BP Pulse Ox 11/26/20 22:00 98.5 F 102 H 20 119/71 98 11/26/20 20:50 98.1 F 105 H 18 131/68 97 11/26/20 19:37 98.2 F 110 H 20 136/73 98 11/26/20 17:48 98 18 129/72 97 11/26/20 16:47 18 11/26/20 16:33 98 F 120 H 18 138/80 97 Intake and Output 11/26/20 11/26/20 11/27/20 14:59 22:59 06:59 Other: Weight 145.15 kg General: non toxic, no distress, appears at stated age, morbidly obese Derm: no unusual rashes/lesions no unusual ecchymoses, warm, dry Head: atraumatic, normocephalic, symmetric Eyes: EOMI, no lid lag, anicteric sclera, pupils equal round reactive to light ENT: Nose and ears atraumatic, no thrush, no pharyngeal erythema Neck: No thyromegaly, no cervical lymphadenopathy, trachea midline, supple Mouth: no lip lesion, mucus membranes moist Cardiovascular: S1S2 reg, tachycardic, no murmur, positive posterior tibial pulse bilateral, 1+ bilateral lower extremity pitting edema, capillary refill less than 2 seconds Lungs: CTA bilateral, no rhonchi, no rales , no accessory muscle use Abdominal: soft, nontender to palpation, no guarding, no appreciable organomegaly, normal bowel sounds Ext: no gross muscle atrophy, muscle strength 5 out of 5 in all 4 extremities grossly, no contractures, Neuro: CN II-XI grossly intact, light touch intact all 4 extremities, finger to nose within normal limits, Psych: Alert, oriented, appropriate affect Results CBC & Chem 7: 11/26/20 17:04 11/26/20 17:04 Labs: Abnormal Lab Results - Last 24 Hours (Table) 11/26/20 11/26/20 11/26/20 Range/Units 17:04 17:04 17:04 D-Dimer 2.06 H (<0.60) mg/L FEU Chloride 113 H (98-107) mmol/L BUN 25 H (9-20) mg/dL Glucose 151 H (74-99) mg/dL ALT 69 H (4-49) U/L Troponin I 0.085 H* (0.000-0.034) ng/mL Assessment and Plan Plan: Unprovoked bilateral PEs -Patient reports an ALLERGIC reaction to heparin in the past where he developed widespread ecchymoses after receiving subcu heparin -He reports being told by his physician that he was ALLERGIC to heparin -Continue with Eliquis for now at 10 mg by mouth twice a day for 7 days followed by 5 mg by mouth twice a day -Obtain echocardiogram to evaluate for right heart strain -Not requiring supplemental oxygen at this time -Lower extremity duplex -Patient will need outpatient hematology follow-up regarding overall duration of therapeutic anticoagulation Chest pain, non-pleuritic -Cardiac monitoring -Trend troponin -Cardiology consult Chronic conditions: Hypertension, hyperlipidemia, obstructive sleep apnea -Obtain A1c -Lispro insulin sliding scale blood glucose monitoring -Patient currently using auto CPAP at home and does not recall his settings and cannot have the machine brought to the hospital. -C/w home meds DVT prophylaxis -Eliquis The patient is admitted with an anticipated greater than 2 midnight stay for evaluation of trevon PEs CODE STATUS: Full Code Discussed with: Patient Anticipated discharge date: 11/[address]: Home A total of 40 minutes was spent on the care of this complex patient more than 50% of the time was spent in counseling and care coordination.
[2020-11-26] MEDS: ATORVASTATIN 40 MG TAB PO SCH (23:52)
[2020-11-26] MEDS: CYCLOBENZAPRINE 10 MG TAB PO SCH (23:56)
[2020-11-27 06:00] LABS: Glucose,Whole Blood 104 mg/dL (75-99)
[2020-11-27] MEDS: oxyCODONE-APAP 5-325MG 1 EACH TAB PO PRN ×3 (06:15→18:40)
[2020-11-27] MEDS: INSULIN ASPART (NovoLOG) 100 UNIT/ML VIAL SQ SCH ×4 (06:43→20:44)
--- NOTE | 2020-11-27 08:10 | US ---
EXAMINATION TYPE: US venous doppler duplex LE DATE OF EXAM: 11/27/2020 7:57 AM COMPARISON: NONE CLINICAL HISTORY: PE. Mild swelling in ankles, new PE's, 320lbs SIDE PERFORMED: Bilateral TECHNIQUE: The lower extremity deep venous system is examined utilizing real time linear array sonog genny with graded compression, doppler sonography and color-flow sonography. VESSELS IMAGED: Common Femoral Vein Deep Femoral Vein Greater Saphenous Vein * Femoral Vein - unable to see distal femoral vein without color, good color flow seen Popliteal Vein Small Saphenous Vein * Proximal Calf Veins (* superficial vessels) Right Leg: Negative for DVT Left Leg: Negative for DVT IMPRESSION: 1. Bilateral lower extremity ultrasound negative for deep venous thrombosis.
[2020-11-27] MEDS: APIXABAN 5 MG TAB PO SCH ×2 (08:56→20:52)
--- NOTE | 2020-11-27 11:27 | P.CRDCN ---
History of Present Illness Consult date: 11/27/20 History of present illness: CHIEF COMPLAINT: Chest pain HISTORY OF PRESENT ILLNESS: This is a 45-year-old male with a past medical history significant for hyperlipidemia and prediabetes. Patient does not follow with a laser systems engineer. We have been asked to see the patient in consultation for chest pain. Patient is currently admitted to the hospital secondary to bilateral pulmonary emboli. Patient states he has been feeling short of breath over the past 3 days. He states yesterday he was walking up the stairs when he became very winded and had to sit down. He states he had an episode of chest pain during that time. He states the pain is in the middle of his chest and was a sharp pain. He states the pain lasted for about 1 minute. He states that he has not had any chest pain since that time. Patient denies history of PE or DVT. He states his mom has a history of DVT. DIAGNOSTICS: EKG reveals sinus tachycardia Chest xray no active cardiopulmonary disease Laboratory data: WBC 9.0. Hemoglobin 14.4. Platelet count 261. D-dimer 2.06. Sodium 143. Potassium 4.7. BUN 25. Creatinine 1.06. Troponin 0.085. 0.056. 0.043. CTA: Multiple bilateral upper and lower lobe pulmonary emboli Current home cardiac medications include fenofibrate 160 mg daily and Lipitor 40 mg daily REVIEW OF SYSTEMS: At the time of my exam: CONSTITUTIONAL: Denies fever or chills. HEENT: Denies blurred vision, vision changes, or eye pain. Denies hemoptysis CARDIOVASCULAR: Denies chest pain, orthopnea, PND or palpitations RESPIRATORY: No shortness of breath. GASTROINTESTINAL: Denies abdominal pain. Denies nausea or vomiting. HEMATOLOGIC: Denies bleeding disorders. GENITOURINARY: Denies any blood in urine. SKIN: Denies pruitis. Denies rash. PHYSICAL EXAM: VITAL SIGNS: Reviewed. GENERAL: Well-developed in no acute distress. HEENT: Head is normocephalic. Pupils are equal, round. Sclerae anicteric. Mucous membranes of the mouth are moist. Neck supple. No JVD or thyromegaly LUNGS: Respirations even and unlabored. Lungs essentially clear to auscultation bilaterally. HEART: Regular rate and rhythm. S1 and S2 heard. ABDOMEN: Soft. Nondistended. Nontender. EXTREMITIES: Normal range of motion. No clubbing or cyanosis. Peripheral pulses intact. No lower extremity edema NEUROLOGIC: Awake and alert. Oriented x 3. ASSESSMENT: Bilateral pulmonary emboli Chest pain, troponins negative 3, no evidence of acute coronary syndrome Mildly abnormal troponins, secondary to bilateral PE Hyperlipidemia Prediabetes, per patient PLAN: Obtain 2-D echo to assess cardiac structure and function Resume home cardiac medications Continue Eliquis for anticoagulation Recommend hematology consult. Discussed with hospitalist POT WASHER who states they will make arrangements for patient to follow up outpatient with a vice president payer Further recommendations pending patient's course Nurse practitioner note has been reviewed by physician. Signing provider agrees with the documented findings, assessment, and plan of care. Past Medical History Past Medical History: Diabetes Mellitus, Hyperlipidemia, Musculoskeletal Disorder, Osteoarthritis (OA), Sleep Apnea/CPAP/BIPAP Additional Past Medical History / Comment(s): Umbilical hernia, constipation, Multiple hereditary exostosis (benign bone tumors), uses auto-pap, varicose veins. History of Any Multi-Drug Resistant Organisms: None Reported Additional Past Surgical History / Comment(s): "benign blood tumor removed from rt leg", nasal repair surg, colonoscopy Past Anesthesia/Blood Transfusion Reactions: Motion Sickness Past Psychological History: No Psychological Hx Reported Smoking Status: Never smoker Past Alcohol Use History: None Reported Past Drug Use History: None Reported - Past Family History Sister(s) Family Medical History: Cancer Mother Family Medical History: Deep Vein Thrombosis (DVT), Pulmonary Embolus Medications and Allergies Home Medications Medication Instructions Recorded Confirmed Type Atorvastatin [Lipitor] 40 mg PO W/SUPPER 05/22/19 11/26/20 History Fenofibrate [Lofibra] 160 mg PO W/SUPPER 05/22/19 11/26/20 History Topiramate [Topamax] 50 mg PO HS 07/18/19 11/26/20 History oxyCODONE-APAP 5-325MG [Percocet 1 tab PO QID 07/18/19 11/26/20 History 5-325 mg] Cyclobenzaprine [Flexeril] 10 mg PO HS 11/26/20 11/26/20 History Diclofenac Sodium [Voltaren] 75 mg PO TID 11/26/20 11/26/20 History Allergies Allergy/AdvReac Type Severity Reaction Status Date / Time heparin Allergy Unknown Verified 01/20/21 19:00 Physical Exam Vitals: Vital Signs Temp Pulse Pulse Resp BP BP Pulse Ox 11/27/20 08:53 97.8 F 95 18 111/74 94 L 11/27/20 08:00 18 11/27/20 04:00 97.8 F 98 16 133/86 94 L 11/27/20 02:00 17 11/27/20 00:00 97.7 F 97 18 137/79 98 11/26/20 22:00 98.5 F 102 H 20 119/71 98 11/26/20 20:50 98.1 F 105 H 18 131/68 97 11/26/20 19:37 98.2 F 110 H 20 136/73 98 11/26/20 17:48 98 18 129/72 97 11/26/20 16:47 18 11/26/20 16:33 98 F 120 H 18 138/80 97 Intake and Output 11/26/20 11/27/20 11/27/20 22:59 06:59 14:59 Intake Total 240 Balance 240 Intake: Oral 240 Other: Voiding Method Toilet Toilet # Voids 3 1 Weight 145.15 kg 143.9 kg Results 11/26/20 17:04 11/26/20 17:04 Cardiac Enzymes 11/26/20 11/26/20 11/27/20 Range/Units 17:04 17:04 00:20 AST 45 (17-59) U/L Troponin I 0.085 H* 0.056 H* (0.000-0.034) ng/mL 11/27/20 Range/Units 06:46 AST (17-59) U/L Troponin I 0.043 H* (0.000-0.034) ng/mL Coagulation 11/26/20 Range/Units 17:04 PT 11.2 (9.0-12.0) sec APTT 22.2 (22.0-30.0) sec CBC 11/26/20 Range/Units 17:04 WBC 9.0 (3.8-10.6) k/uL RBC 5.22 (4.30-5.90) m/uL Hgb 14.4 (13.0-17.5) gm/dL Hct 44.7 (39.0-53.0) % Plt Count 261 (150-450) k/uL Comprehensive Metabolic Panel 11/26/20 Range/Units 17:04 Sodium 143 (137-145) mmol/L Potassium 4.7 (3.5-5.1) mmol/L Chloride 113 H (98-107) mmol/L Carbon Dioxide 22 (22-30) mmol/L BUN 25 H (9-20) mg/dL Creatinine 1.06 (0.66-1.25) mg/dL Glucose 151 H (74-99) mg/dL Calcium 9.6 (8.4-10.2) mg/dL AST 45 (17-59) U/L ALT 69 H (4-49) U/L Alkaline Phosphatase 70 (38-126) U/L Total Protein 7.4 (6.3-8.2) g/dL Albumin 4.4 (3.5-5.0) g/dL Current Medications Generic Name Dose Route Start Last Admin Trade Name Freq PRN Reason Stop Dose Admin Acetaminophen 650 mg 11/26/20 20:11 Acetaminophen Tab 325 Mg Tab PO Q6HR PRN Mild Pain or Fever > 100.5 Apixaban 10 mg 11/26/20 21:00 11/27/20 08:56 Apixaban 5 Mg Tab PO 12/02/20 20:11 10 mg BID JACKSON Administration Atorvastatin Calcium 40 mg 11/26/20 23:23 11/26/20 23:52 Atorvastatin 40 Mg Tab PO Not Given W/SUPPER JACKSON Cyclobenzaprine HCl 10 mg 11/26/20 23:34 11/26/20 23:56 Cyclobenzaprine 10 Mg Tab PO 10 mg HS JACKSON Administration Fenofibrate 160 mg 11/27/20 17:30 Fenofibrate 160 Mg Tab PO W/SUPPER JACKSON Insulin Aspart 0 unit 11/27/20 07:30 11/27/20 06:43 Insulin Aspart (Novolog) 100 Unit/Ml Vial SQ Not Given ACHS JACKSON Protocol Lorazepam 0.5 mg 11/26/20 20:11 Lorazepam 2 Mg/Ml Inj IV Q6HR PRN Anxiety Naloxone HCl 0.2 mg 11/26/20 20:11 Naloxone 0.4 Mg/Ml 1 Ml Vial IV Q2M PRN Opioid Reversal Ondansetron HCl 4 mg 11/26/20 20:11 Ondansetron 4 Mg/2 Ml Vial IVP Q8HR PRN Nausea And Vomiting Oxycodone/Acetaminophen 1 each 11/27/20 06:07 11/27/20 06:15 Oxycodone-Apap 5-325mg 1 Each Tab PO 1 each QID PRN Administration Moderate Pain Intake and Output 11/26/20 11/27/20 11/27/20 22:59 06:59 14:59 Intake Total 240 Balance 240 Intake: Oral 240 Other: Voiding Method Toilet Toilet # Voids 3 1 Weight 145.15 kg 143.9 kg 11/26/20 17:04 11/26/20 17:04
[2020-11-27 11:53] LABS: Glucose,Whole Blood 107 mg/dL (75-99)
--- NOTE | 2020-11-27 12:19 | ECHOF ---
Referral Reason:PE MEASUREMENTS -------- HEIGHT: 180.3 cm WEIGHT: 143.8 kg BP: RVIDd: 3.3 cm (< 3.3) IVSd: 1.3 cm (0.6 - 1.1) LVIDd: 4.1 cm (3.9 - 5.3) LVPWd: 1.2 cm (0.6 - 1.1) IVSs: 1.4 cm LVIDs: 3.1 cm LVPWs: 1.7 cm LA Diam: 3.6 cm (2.7 - 3.8) LAESV Index (A-L): 12.09 ml/m Ao Diam: 3.2 cm (2.0 - 3.7) AV Cusp: 2.2 cm (1.5 - 2.6) MV EXCURSION: 18.048 mm (> 18.000) MV EF SLOPE: 84 mm/s (70 - 150) EPSS: 0.5 cm MV E Con: 0.98 m/s MV DecT: 191 ms MV A Con: 0.88 m/s MV E/A Ratio: 1.12 RAP: 5.00 mmHg RVSP: 45.28 mmHg FINDINGS -------- Sinus rhythm. This was a technically difficult study with suboptimal views. The left ventricular size is normal. There is mild concentric left ventricular hypertrophy. Overa ll left ventricular systolic function is normal with, an EF between 55 - 60 %. The right ventricle is mildly enlarged. The RV was not well visualized. Normal LA size by volume 22+/-6 ml/m2. The right atrium was not well visualized. 4 ml of Lumason was utilized for enhancement of images. The aortic valve is trileaflet, and appears structurally normal. No aortic stenosis or regurgitation. The mitral valve is normal. Mild mitral regurgitation is present. The tricuspid valve appears structurally normal. Mild tricuspid regurgitation present. There is m ild to moderate pulmonary hypertension. The right ventricular systolic pressure, as measured by Dop pler, is 45.28mmHg. Trace/mild (physiologic) pulmonic regurgitation. The aortic root size is normal. IVC Not well visulized. There is no pericardial effusion. CONCLUSIONS -------- 1. This was a technically difficult study with suboptimal views. 2. There is mild concentric left ventricular hypertrophy. 3. Overall left ventricular systolic function is normal with, an EF between 55 - 60 %. 4. The right ventricle is mildly enlarged. 5. 4 ml of Lumason was utilized for enhancement of images. 6. The aortic valve is trileaflet, and appears structurally normal. No aortic stenosis or regurgitati on. 7. Mild mitral regurgitation is present. 8. Mild tricuspid regurgitation present. 9. There is mild to moderate pulmonary hypertension. 10. Trace/mild (physiologic) pulmonic regurgitation. 11. There is no pericardial effusion. RADIO PRESENTER: Ana Arboleda RDCS
--- NOTE | 2020-11-27 13:14 | P.PN ---
Subjective Progress Note Date: 11/27/20 Principal diagnosis: Acute Pulmonary emboli of bilateral upper and lower lobes History of Presenting Illness: Patient is a 42-year-old male with a past medical history hypertension, obstructive sleep apnea CPAP dependent, type 2 diabetes mellitus, and multiple hereditary osteochondromas. He presented to the emergency department with a [facility] complaint of shortness of breath and palpitations. Patient reports he began having dyspnea with exertion approximately 1-2 months ago but states it was mild and only with moderate exertion, until 3 days ago when he developed significant shortness of breath while walking up one flight of stairs, stating he just could not catch his breath and even had to sit down. Patient states during this time he became diaphoretic, lightheaded, and felt mild midsternal chest discomfort with palpitations. Pt states since this episode, the shortness of breath and palpitations have remained. Pt was seen and fully evaluated in the ER resulting in diagnosis of multiple bilateral upper and lower lobe pulmonary emboli. Pt was started on anticoagulation with Eliquis secondary to an allergy to Heparin. Pt denies recent history of infection or illness or hx of sedetary lifestyle, recent long trips or plane rides, or previous DVT's or PE's, but he does report that his mother has an extensive hx of DVTs and was "on anticoagulants but from a blood clot." D-dimer was elevated at 2.06 and CTA revealed multiple upper and lower lobe pulmonary emboli with no evidence of right heart strain. Bilateral venous Dopplers: Right and Left Negative for DVTs EKG: Sinus tachycardia at 112 bpm with no noted signs of ischemia or T-wave abnormalities. Labs: Covid 19 PCR negative. CBC and BMP showing no significant abnormalities. Troponin elevated with initial troponin is 0.085, 0.056, and 0.043. Objective - Vital Signs Vital signs: Vital Signs Temp 97.5 F L 11/27/20 11:40 Pulse 97 11/27/20 11:40 Resp 18 11/27/20 11:40 BP 136/89 11/27/20 11:40 Pulse Ox 95 11/27/20 11:40 Intake & Output 11/26/20 11/27/20 11/27/20 18:59 06:59 18:59 Intake Total 240 Balance 240 Weight 145.15 kg 143.9 kg Intake: Oral 240 Other: Voiding Method Toilet Toilet # Voids 3 1 - Exam Physical exam: Patient was seen and fully evaluated at the bedside. He reports mild shortness of breath remains, but currently denies feeling any headache, lightheadedness, dizziness, cough or congestion, chest pain or palpitations, abdominal pain, nausea, or any other complaints. With the exception of very mild tachycardia, pt's vital signs have remained stable since admission with no episodes of hypoxia noted. General: non toxic, no distress, appears at stated age Derm: warm, dry Head: atraumatic, normocephalic, symmetric Eyes: EOMI, no lid lag, anicteric sclera Mouth: no lip lesion, mucus membranes moist Cardiovascular: S1S2 normal with regular rate and rhythm, no murmur, positive posterior tibial pulses bilaterally, cap refill less than 2 seconds. Lungs: Respirations even, regular, and unlabored on room air. Lungs CTA bilateral, no rhonchi, no rales, no wheezing and no accessory muscle use Abdominal: Obese abdomen soft, nontender to palpation, no guarding, no appreciable organomegaly Ext: no gross muscle atrophy, no edema, no contractures Neuro: Speech clear, no focal neuro deficits Psych: Alert, oriented, appropriate affect - Labs CBC & Chem 7: 11/26/20 17:04 11/26/20 17:04 Labs: Abnormal Lab Results - Last 24 Hours (Table) 11/26/20 11/26/20 11/26/20 Range/Units 17:04 17:04 17:04 D-Dimer 2.06 H (<0.60) mg/L FEU Chloride 113 H (98-107) mmol/L BUN 25 H (9-20) mg/dL Glucose 151 H (74-99) mg/dL POC Glucose (mg/dL) (75-99) mg/dL ALT 69 H (4-49) U/L Troponin I 0.085 H* (0.000-0.034) ng/mL 11/27/20 11/27/20 11/27/20 Range/Units 00:20 05:59 06:46 D-Dimer (<0.60) mg/L FEU Chloride (98-107) mmol/L BUN (9-20) mg/dL Glucose (74-99) mg/dL POC Glucose (mg/dL) 104 H (75-99) mg/dL ALT (4-49) U/L Troponin I 0.056 H* 0.043 H* (0.000-0.034) ng/mL Assessment and Plan Plan: Plan of care: Acute bilateral upper and lower lobe pulmonary emboli -D-dimer was elevated at 2.06 and CTA revealed multiple upper and lower lobe pulmonary emboli with no evidence of right heart strain. -Bilateral venous Dopplers: Right and Left Negative for DVTs -Echocardiogram -Continuation of Eliquis 10 mg twice daily for 7 days. -Patient to follow up outpatient with hematology, Dr. Mccarty upon discharge. Elevated troponins -Troponin elevated with initial troponin is 0.085, 0.056, and 0.043. -EKG: Sinus tachycardia at 112 bpm with no noted signs of ischemia or T-wave abnormalities. -Echocardiogram to be completed to rule out right heart strain -Cardiology consult Type II Diabetes Mellitus -Glycemic protocol with sliding scale. -Blood glucose levels ACHS -Heart healthy carb consistent -A1c pending. Hyperlipidemia -Continue Atorvastatin -Heart healthy carb consistent diet Obstructive Sleep Apnea -Patient typically CPAP dependent, did not bring his CPAP to Hospital and does not recall settings. -Patient did be provided with oxygenation as needed to maintain SpO2 equal to or greater than 92%. CODE STATUS: Full code DVT prophylaxis: Eliquis Discussed with: Patient and RN Anticipated discharge: tomorrow Anticipated discharge place: home A total of 35 minutes was spent on the care of this complex patient more than 50% of the time was spent in counseling and care coordination.
[2020-11-27 13:49] LABS: Hemoglobin A1C 6.2 % (4.0-6.0)
[2020-11-27 16:34] LABS: Glucose,Whole Blood 104 mg/dL (75-99)
[2020-11-27] MEDS: ATORVASTATIN 40 MG TAB PO SCH (16:44)
[2020-11-27] MEDS ORDERED: FENOFIBRATE 160 MG TAB PO SCH (17:30)
[2020-11-27 20:14] LABS: Glucose,Whole Blood 96 mg/dL (75-99)
[2020-11-27] MEDS: CYCLOBENZAPRINE 10 MG TAB PO SCH (20:52)
[2020-11-27] MEDS ORDERED: CYCLOBENZAPRINE 10 MG TAB PO SCH (21:00)
[2020-11-27] MEDS ORDERED: TOPIRAMATE 25 MG TAB PO SCH (21:00)
[2020-11-28] MEDS: oxyCODONE-APAP 5-325MG 1 EACH TAB PO PRN ×2 (00:42→08:31)
[2020-11-28 04:27] VITALS: RESP 18
[2020-11-28 06:22] LABS: Glucose,Whole Blood 97 mg/dL (75-99)
[2020-11-28] MEDS: INSULIN ASPART (NovoLOG) 100 UNIT/ML VIAL SQ SCH (06:31)
[2020-11-28 08:29] VITALS: BP 138/79; PULSE 98; TEMP 97.8
[2020-11-28] MEDS: APIXABAN 5 MG TAB PO SCH (08:29)
[2020-11-28 08:45] LABS: HCT 44.3 % (39.0-53.0); HGB 14.7 gm/dL (13.0-17.5); MCH 28.7 pg (25.0-35.0); MCHC 33.3 g/dL (31.0-37.0); MCV 86.3 fL (80.0-100.0); Mean Platelet Volume 7.2; Platelet Count 287 k/uL (150-450); RBC 5.14 m/uL (4.30-5.90); RDW 13.7 % (11.5-15.5); WBC 10.1 k/uL (3.8-10.6)
--- NOTE | 2020-11-28 11:06 | P.DS ---
<Papa Gardner - Last Filed: 11/28/20 12:12> Providers Expected date of discharge: 11/28/20 Hospital Course: Discharge Diagnosis: Acute bilateral upper and lower lobe pulmonary emboli Elevated troponins, most likely nontraumatic troponin leak secondary to demand ischemia resulting from acute PEs, improving. Type II Diabetes Mellitus, stable Hyperlipidemia, stable Obstructive Sleep Apnea CPAP dependent nightly, stable Hospital Course: Patient is a 42-year-old male with a past medical history hypertension, obstructive sleep apnea CPAP dependent, type 2 diabetes mellitus, and multiple hereditary osteochondromas. He presented to the emergency department on 11/26/20 with a chief complaint of shortness of breath and palpitations. Pt was seen and fully evaluated in the emergency department where he was found to have an elevated d-dimer at 2.06 and a CTA was completed revealing multiple upper and lower lobe pulmonary emboli with no evidence of right heart strain. Patient was admitted to hospital and started on anticoagulation with Eliquis secondary to his ALLERGY to heparin. Bilateral venous Dopplers completed which were both negative for DVTs. Echocardiogram revealed mild concentric left ventricular hypertrophy with a preserved ejection fraction of 55-60% and no valvular abnormalities. Status post initiation of anticoagulation, patient's condition has improved and he reports shortness of breath and palpitations have resolved and denies any further complaints. His oxygen saturations are 97% on room air. He is being discharged home at this time. Had a long discussion regarding discharge home on an anticoagulant-Eliquis for treatment of his pulmonary emboli and risks of bleeding and when to notify PCP or return to the ED. Pt instructed on importance of following up with Book Cleaner, Dr. Mccarty for continued long-term anticoagulation and further testing. Labs and imaging obtained throughout hospital course: D-dimer was elevated at 2.06 and CTA revealed multiple upper and lower lobe pulmonary emboli with no evidence of right heart strain. Bilateral venous Dopplers: Right and Left Negative for DVTs EKG: Sinus tachycardia at 112 bpm with no noted signs of ischemia or T-wave abnormalities. Labs: Covid 19 PCR negative. CBC and BMP showing no significant abnormalities. Troponin elevated with initial troponin is 0.085, 0.056, and 0.043. Hemoglobin A1c 6.2. Assessment: Patient seen and examined this morning. He was sitting in reclining chair, states feeling great today. Patient denies having any further shortness of breath, dyspnea with exertion, or palpitations at this time. He denies any headache, lightheadedness, dizziness, weakness, numbness, tingling, or any other complaints. Physical exam: Vital signs reviewed and stable. General: Nontoxic, no distress and appears stated age. Derm: Skin warm and dry, normal coloration for ethnicity. Head: Atraumatic, normocephalic and symmetric. Eyes: EOMs intact, no lid lag, and anicteric sclera Mouth: no lip lesions, mucus membranes moist Cardiovascular: regular rate and rhythm with normal S1S2, no murmur, positive posterior tibial pulses bilaterally, and cap refill < 2 seconds. Lungs: Respirations even, regular, and unlabored on room air. Lungs CTA bilaterally, no rhonchi, no rales, no wheezing, and no accessory muscle usage. Abdominal: soft, nontender to palpation, no guarding, no appreciable organomegaly Ext: ROM intact. No gross muscle atrophy, no edema, no contractures Neuro: Speech clear, face symmetrical and CN II-XII grossly intact with no noted focal neuro deficits Psych: Alert and oriented to person, place, time, and situation. Appropriate and pleasant affect. A total of 45 minutes of time were spent preparing this complex discharge summary. Patient Condition at Discharge: Stable Plan - Discharge Summary Discharge Rx Participant: No New Discharge Prescriptions: New Apixaban [Eliquis Starter Pack (for VTE)] 0 mg PO DIRECTED 30 Days #1 pack Acetaminophen Tab [Tylenol] 650 mg PO Q6HR PRN tab PRN Reason: Mild Pain Or Fever > 100.5 Continue Fenofibrate [Lofibra] 160 mg PO W/SUPPER Atorvastatin [Lipitor] 40 mg PO W/SUPPER Topiramate [Topamax] 50 mg PO HS oxyCODONE-APAP 5-325MG [Percocet 5-325 mg] 1 tab PO QID Cyclobenzaprine [Flexeril] 10 mg PO HS Discontinued Diclofenac Sodium [Voltaren] 75 mg PO TID Discharge Medication List Atorvastatin [Lipitor] 40 mg PO W/SUPPER 05/22/19 [History] Fenofibrate [Lofibra] 160 mg PO W/SUPPER 05/22/19 [History] Topiramate [Topamax] 50 mg PO HS 07/18/19 [History] oxyCODONE-APAP 5-325MG [Percocet 5-325 mg] 1 tab PO QID 07/18/19 [History] Cyclobenzaprine [Flexeril] 10 mg PO HS 11/26/20 [History] Apixaban [Eliquis Starter Pack (for VTE)] 0 mg PO DIRECTED 30 Days #1 pack 11/27/20 [Rx] Acetaminophen Tab [Tylenol] 650 mg PO Q6HR PRN tab 11/28/20 [Rx] Follow up Appointment(s)/Referral(s): Estrada Mccarty MD [STAFF PHYSICIAN] - 2 Weeks (Follow up with Dr. Mccarty, Hematology for continuation of anticoagulation with Eliquis and follow up lab work. ) Mary Duran MD [Primary Care Provider] - 1-2 days (Office will call with follow-up appt.) Anais Khan MD [STAFF PHYSICIAN] - 12/12/20 2:30 pm Patient Instructions/Handouts: Pulmonary Embolism (DC) Activity/Diet/Wound Care/Special Instructions: Activity: As tolerated Diet: Heart healthy carb consistent diet Special Instructions: You are being discharged home on an anticoagulant for treatment of your pulmonary emboli, Eliquis. This places you at risk for bleeding. If you cut yourself or get a nose bleed, you may have to apply pressure longer that he usually would to stop the bleeding. If you experience any episodes of uncontrolled bleeding, noted blood in stool or urine, or experience any falls you need to notify your PCP immediately as you may need further evaluation. Discharge Disposition: HOME SELF-CARE <Estefania Crooks - Last Filed: 11/28/20 12:50> Providers Date of admission: 11/26/20 20:14 Attending physician: Roly Ellsworth MD Consults: 11/26/20 23:22 Consult Physician Urgent Consulting Provider: Parag Wylie Consult Reason/Comments: chest pain Do you want consulting provider notified?: Yes Primary care physician: Mary Duran Hospital Course: Patient seen and examined independently. Patient was also seen by Papa Gardner NP and case was discussed. I am in agreement with discharge diagnosis, hospital course, and physical exam as written above and amended below. Patient seen and examined at bedside. Breathing better, chest pain gone. All questions answered regarding side effects of medications. General: non toxic, no distress, appears at stated age Derm: warm, dry Head: atraumatic, normocephalic, symmetric Eyes: EOMI, no lid lag, anicteric sclera Mouth: no lip lesion, mucus membranes moist Cardiovascular: S1S2 reg, no murmur, positive posterior tibial pulse bilateral, Lungs: CTA bilateral, no rhonchi, no rales , no accessory muscle use Patient is aware to follow-up with Heme/onc. He knows the importance of taking medications as prescribed.
--- NOTE | 2020-11-28 13:34 | P.PN ---
Subjective Progress Note Date: 11/28/20 CHIEF COMPLAINT: Chest pain HISTORY OF PRESENT ILLNESS: 11/27/2020 This is a 45-year-old male with a past medical history significant for hyperlipidemia and prediabetes. Patient does not follow with a inventory controller. We have been asked to see the patient in consultation for chest pain. Patient is currently admitted to the hospital secondary to bilateral pulmonary emboli. Patient states he has been feeling short of breath over the past 3 days. He states yesterday he was walking up the stairs when he became very winded and had to sit down. He states he had an episode of chest pain during that time. He states the pain is in the middle of his chest and was a sharp pain. He states the pain lasted for about 1 minute. He states that he has not had any chest pain since that time. Patient denies history of PE or DVT. He states his mom has a history of DVT. 11/28/2020 Patient examined and spreads visit. He denies chest pain or pressure. Denies shortness of breath. Vital signs are stable. He remains on Eliquis for anticoagulation. Echocardiogram completed reveals ejection fraction 55-60%, mild mitral regurgitation, mild tricuspid regurgitation and moderate pulmonary hypertension. He is hoping to be discharged home today. PHYSICAL EXAM: VITAL SIGNS: Reviewed. GENERAL: Well-developed in no acute distress. HEENT: Head is normocephalic. Pupils are equal, round. Sclerae anicteric. Mucous membranes of the mouth are moist. Neck supple. No JVD or thyromegaly LUNGS: Respirations even and unlabored. Lungs essentially clear to auscultation bilaterally. HEART: Regular rate and rhythm. S1 and S2 heard. ABDOMEN: Soft. Nondistended. Nontender. EXTREMITIES: Normal range of motion. No clubbing or cyanosis. Peripheral pulses intact. No lower extremity edema NEUROLOGIC: Awake and alert. Oriented x 3. ASSESSMENT: Bilateral pulmonary emboli Chest pain, troponins negative 3, no evidence of acute coronary syndrome Mildly abnormal troponins, secondary to bilateral PE Hyperlipidemia Prediabetes, per patient Mild to moderate pulmonary hypertension PLAN: Continue Eliquis for anticoagulation Patient is stable for discharge home today from a cardiac perspective. He is to follow up on an outpatient basis. Nurse practitioner note has been reviewed by physician. Signing provider agrees with the documented findings, assessment, and plan of care. Objective - Vital Signs Vital signs: Vital Signs Temp 97.8 F 11/28/20 08:27 Pulse 98 11/28/20 08:27 Resp 18 11/28/20 08:27 BP 138/79 11/28/20 08:27 Pulse Ox 97 11/28/20 08:27 Intake & Output 11/27/20 11/28/20 11/28/20 18:59 06:59 18:59 Intake Total 1200 Balance 1200 Weight 143.3 kg Intake: Oral 1200 Other: Voiding Method Toilet Toilet # Voids 2 3 - Labs CBC & Chem 7: 11/28/20 08:15 11/26/20 17:04 Labs: Abnormal Lab Results - Last 24 Hours (Table) 11/27/20 11/27/20 Range/Units 06:46 16:33 POC Glucose (mg/dL) 104 H (75-99) mg/dL Hemoglobin A1c 6.2 H (4.0-6.0) %
== END 2020-11-28 10:51 | disposition home or self-care (01) | DRG 176 ==
LOC: EC 16:26 → 3SCARD 20:14
PROVIDERS: ADMIT Internal Medicine; ATTEND Internal Medicine
DX: I26.99 Other pulmonary embolism without acute cor pulmonale (principal); I24.8 Other forms of acute ischemic heart disease; G47.33 Obstructive sleep apnea (adult) (pediatric); E78.5 Hyperlipidemia, unspecified; E11.9 Type 2 diabetes mellitus without complications; M19.90 Unspecified osteoarthritis, unspecified site; I27.20 Pulmonary hypertension, unspecified; I10 Essential (primary) hypertension; R00.0 Tachycardia, unspecified; Z20.822 Contact with and (suspected) exposure to COVID-19; Q78.6 Multiple congenital exostoses; Z88.8 Allergy status to other drugs, medicaments and biological substances; Z80.9 Family history of malignant neoplasm, unspecified; Z82.49 Family history of ischemic heart disease and other diseases of the circulatory system
CPT/HCPCS: 36415; 71046; 71275; 80053; 83036; 84484; 85025; 85027; 85379; 85610; 85730; 87635; 93005; 93306; 93970; 96360; 96361; 99285

== ENCOUNTER 2021-01-24 14:41 | Emergency (ER) | payer OTHER ==
--- NOTE | 2021-01-24 15:12 | ED ---
General Adult HPI - General Chief complaint: Headache Stated complaint: Headache Time Seen by Provider: 01/24/21 15:11 Source: patient Mode of arrival: ambulatory Limitations: no limitations - History of Present Illness Initial comments: Patient presents to the ED for evaluation of headache. Patient states that he developed a gradual onset left parietal headache at about 10 AM this morning. Patient states that he has had associated nausea and one bout of emesis today. Patient also states that he feels slightly dizzy as well. Patient states that he has a history of migraine headaches, but he states that his headache today is different than his usual migraine headaches. Patient is currently on Eliquis anticoagulation therapy for a pulmonary embolism that he was diagnosed with in the past. Patient states that he took a dose of Tylenol earlier today without any relief. Patient denies trauma or injury, sudden onset of headache, LOC, neck pain or stiffness, fever or chills, focal numbness/weakness/neuro deficit, visual changes, speech difficulty, chest pain, dyspnea, palpitations, syncope, abdominal pain, diarrhea, urinary symptoms, or any other symptoms or complaints. Patient states that his pain is currently 7/10 in severity. - Related Data Home Medications Medication Instructions Recorded Confirmed Atorvastatin [Lipitor] 40 mg PO W/SUPPER 05/22/19 11/26/20 Fenofibrate [Lofibra] 160 mg PO W/SUPPER 05/22/19 11/26/20 Topiramate [Topamax] 50 mg PO HS 07/18/19 11/26/20 oxyCODONE-APAP 5-325MG [Percocet 1 tab PO QID 07/18/19 11/26/20 5-325 mg] Cyclobenzaprine [Flexeril] 10 mg PO HS 11/26/20 11/26/20 Previous Rx's Medication Instructions Recorded Apixaban [Eliquis Starter Pack 0 mg PO DIRECTED 30 Days #1 pack 11/27/20 (for VTE)] Acetaminophen Tab [Tylenol] 650 mg PO Q6HR PRN tab 11/28/20 Allergies Allergy/AdvReac Type Severity Reaction Status Date / Time heparin Allergy Unknown Verified 01/24/21 14:52 Review of Systems ROS Statement: Those systems with pertinent positive or pertinent negative responses have been documented in the HPI. ROS Other: All systems not noted in ROS Statement are negative. Past Medical History Past Medical History: Diabetes Mellitus, Hyperlipidemia, Musculoskeletal Disorder, Osteoarthritis (OA), Sleep Apnea/CPAP/BIPAP Additional Past Medical History / Comment(s): Umbilical hernia, constipation, Multiple hereditary exostosis (benign bone tumors), uses auto-pap, varicose veins. History of Any Multi-Drug Resistant Organisms: None Reported Additional Past Surgical History / Comment(s): "benign blood tumor removed from rt leg", nasal repair surg, colonoscopy Past Anesthesia/Blood Transfusion Reactions: Motion Sickness Past Psychological History: No Psychological Hx Reported Smoking Status: Never smoker Past Alcohol Use History: None Reported Past Drug Use History: None Reported - Past Family History Sister(s) Family Medical History: Cancer Mother Family Medical History: Deep Vein Thrombosis (DVT), Pulmonary Embolus General Exam Limitations: no limitations General appearance: alert, in no apparent distress Head exam: Present: atraumatic, normocephalic, other (No facial or scalp tenderness or swelling is appreciated) Eye exam: Present: normal appearance, PERRL, EOMI ENT exam: Present: mucous membranes moist Neck exam: Present: other (No meningeal signs are present on examination; trachea is in midline). Absent: tenderness, meningismus Respiratory exam: Present: normal lung sounds bilaterally. Absent: respiratory distress, wheezes, rales, rhonchi, stridor Cardiovascular Exam: Present: regular rate, normal rhythm, normal heart sounds, other (Normal radial pulses bilaterally) GI/Abdominal exam: Present: soft. Absent: distended, tenderness Extremities exam: Present: full ROM. Absent: pedal edema Neurological exam: Present: alert, oriented X3, CN II-XII intact. Absent: motor sensory deficit Psychiatric exam: Present: normal affect, normal mood Skin exam: Present: warm, dry, intact, normal color Course Vital Signs 01/24/21 14:47 Temperature 97.9 F Pulse Rate 95 Respiratory 18 Rate Blood Pressure 121/78 O2 Sat by Pulse 100 Oximetry - Reevaluation(s) Reevaluation #1: 01/24/21 16:21 Patient states that his headache/symptoms have improved with ED treatment. Patient denies development of any new symptoms while in the ED. Patient remains alert and breathing comfortably. Patient continues to have a normal/nonfocal neurological exam. Patient was counseled about headaches, and he was clearly explained return and follow-up instructions. Patient feels comfortable with this plan. Medical Decision Making - Medical Decision Making Patient's head CT and labs are fairly unremarkable. Patient has a history of migraine headaches. I suspect a benign and nonemergent etiology of the patient's symptoms. Clear return and follow-up instructions were given to the patient. Patient feels comfortable with this plan. Will discharge patient home at this time. - Lab Data Result diagrams: 01/24/21 15:44 01/24/21 15:44 Lab Results 01/24/21 01/24/21 01/24/21 Range/Units 15:44 15:44 15:44 WBC 8.6 (3.8-10.6) k/uL RBC 5.28 (4.30-5.90) m/uL Hgb 14.5 (13.0-17.5) gm/dL Hct 45.3 (39.0-53.0) % MCV 85.9 (80.0-100.0) fL MCH 27.4 (25.0-35.0) pg MCHC 31.9 (31.0-37.0) g/dL RDW 13.7 (11.5-15.5) % Plt Count 294 (150-450) k/uL MPV 6.7 Neutrophils % 70 % Lymphocytes % 20 % Monocytes % 6 % Eosinophils % 3 % Basophils % 0 % Neutrophils # 6.0 (1.3-7.7) k/uL Lymphocytes # 1.7 (1.0-4.8) k/uL Monocytes # 0.5 (0-1.0) k/uL Eosinophils # 0.2 (0-0.7) k/uL Basophils # 0.0 (0-0.2) k/uL PT 10.9 (9.0-12.0) sec INR 1.0 (<1.2) APTT 23.8 (22.0-30.0) sec Sodium 139 (137-145) mmol/L Potassium 4.4 (3.5-5.1) mmol/L Chloride 106 (98-107) mmol/L Carbon Dioxide 25 (22-30) mmol/L Anion Gap 8 mmol/L BUN 21 H (9-20) mg/dL Creatinine 1.06 (0.66-1.25) mg/dL Est GFR (CKD-EPI)AfAm >90 (>60 ml/min/1.73 sqM) Est GFR (CKD-EPI)NonAf 84 (>60 ml/min/1.73 sqM) Glucose 131 H (74-99) mg/dL Calcium 9.6 (8.4-10.2) mg/dL - Radiology Data Radiology results: report reviewed (Noncontrast head CT is normal) Disposition Clinical Impression: Headache Disposition: HOME SELF-CARE Condition: Stable Instructions (If sedation given, give patient instructions): Acute Headache (ED) Additional Instructions: Return to the ER immediately should you develop new or worsening pain, increased or persistent vomiting, numbness or weakness, chest pain, shortness of breath, a fever, feeling faint or fainting, or new or worsening symptoms. Follow up closely with your primary care provider. Is patient prescribed a controlled substance at d/c from ED?: No Referrals: Mary Duran MD [Primary Care Provider] - 1-2 days
[2021-01-24] MEDS ORDERED: diphenhydrAMINE 50 MG/ML 1 ML VIAL IVP STA (15:16)
[2021-01-24] MEDS ORDERED: SODIUM CHLORIDE 0.9% 500 ML 500 ML IV STA (15:16)
[2021-01-24] MEDS ORDERED: METOCLOPRAMIDE 5 MG/ML 2 ML VIAL IVP STA (15:16)
[2021-01-24 15:52] LABS: Basophils % (A) 0 %; Eosinophils # (A) 0.2 k/uL (0-0.7); Eosinophils % (A) 3 %; HCT 45.3 % (39.0-53.0); HGB 14.5 gm/dL (13.0-17.5); Lymphocytes # (A) 1.7 k/uL (1.0-4.8); Lymphocytes % (A) 20 %; MCH 27.4 pg (25.0-35.0); MCHC 31.9 g/dL (31.0-37.0); MCV 85.9 fL (80.0-100.0); Mean Platelet Volume 6.7; Monocytes # (A) 0.5 k/uL (0-1.0); Monocytes % (A) 6 %; Neutrophils % (A) 70 %; Platelet Count 294 k/uL (150-450); RBC 5.28 m/uL (4.30-5.90); RDW 13.7 % (11.5-15.5); WBC 8.6 k/uL (3.8-10.6)
[2021-01-24 16:00] LABS: African American GFR (CKD) >90 (>60 ml/min/1.73 sqM); Anion Gap 8 mmol/L; Blood Urea Nitrogen 21 mg/dL (9-20); Calcium 9.6 mg/dL (8.4-10.2); Carbon Dioxide 25 mmol/L (22-30); Chloride 106 mmol/L (98-107); Glucose 131 mg/dL (74-99); Non-African American GFR(CKD) 84 (>60 ml/min/1.73 sqM); Partial Thromboplastin Time 23.8 sec (22.0-30.0); Potassium 4.4 mmol/L (3.5-5.1); Prothrombin Time 10.9 sec (9.0-12.0); Sodium 139 mmol/L (137-145)
--- NOTE | 2021-01-24 16:16 | CT ---
EXAMINATION TYPE: CT brain wo con DATE OF EXAM: 01/24/2021 COMPARISON: None HISTORY: Migrane CT DLP: 1115.4 mGycm Automated exposure control for dose reduction was used. Ventricles have normal size. There is no mass effect nor midline shift. There is no sign of intracran ial hemorrhage. Calvarium is intact. There is no evidence of cerebral edema. IMPRESSION: Normal unenhanced head CT scan.
[2021-01-24 17:19] VITALS: BP 141/89; PULSE 85; RESP 16; TEMP 98.2
== END 2021-01-24 17:05 | disposition home or self-care (01) ==
LOC: EC 14:41
DX: R51.9 Headache, unspecified (principal); E78.5 Hyperlipidemia, unspecified; E11.9 Type 2 diabetes mellitus without complications; G47.30 Sleep apnea, unspecified; Z79.01 Long term (current) use of anticoagulants; Z79.899 Other long term (current) drug therapy; Z88.8 Allergy status to other drugs, medicaments and biological substances; Z86.711 Personal history of pulmonary embolism; Z99.89 Dependence on other enabling machines and devices
CPT/HCPCS: 36415; 80048; 85025; 85610; 85730; 70450; 99284; 96374; 96375; 96361; J1200; J2765

== ENCOUNTER → 2021-02-05 | Outpatient (CLI) | payer OTHER ==
--- NOTE | 2021-02-05 18:25 | SFUN ---
SLEEP CENTER FOLLOW UP NOTE DATE OF SERVICE: 02/05/2021 45-year-old gentleman who has been followed in Sleep Center for treatment of obstructive sleep apnea-hypopnea syndrome. Patient continues to use his CPAP equipment every night for the whole night. Recently was in the hospital for pulmonary embolization. Cause of pulmonary embolism was not found. [place] Sleepiness Scale today is 8. I checked CPAP unit. It is on automatic regimen. Range of the pressure 12-20, average pressure 13.4. Usage is every night 30/30 nights for more than 4 hours, average 8.1 hours per night. Leak is only 0 L/minute. Apnea-hypopnea index only 0.4, which is absolutely perfect. MEDICATIONS: Eliquis 5 mg twice a day, Percocet 5/325 mg up to 4 times a day. Flexeril 10 mg once a day. Topamax 50 mg once a day, fenofibrate 160 mg once a day. Lipitor 40 mg once a day. PHYSICAL EXAM: Patient in no distress. BP 130/77, HR 90, RR 16, height 5 feet 10 inches, weight 331.2, temperature 98.8, oxygen saturation at room air 96%. Oropharynx extremely low position of soft palate. Mallampati 4. NECK: Supple, no JVD. Thyroid is not palpable. LUNGS: Clear to percussion and to auscultation. Good air exchange. No wheezing or rhonchi. HEART: S1, S2 regular. No murmurs, gallops, or rubs. ABDOMEN: Obese, BMI 47.4. EXTREMITIES: No clubbing or cyanosis. LABORER ELECTROPLATING: Awake, alert, and oriented X3. Cranial nerves 2 to 7 intact. There is no fasciculation or atrophy. noted. No focal deficits observed. IMPRESSION: 1. Moderate obstructive sleep apnea-hypopnea syndrome patient demonstrated 100% compliance with treatment, benefitting from treatment. 2. Status post pulmonary embolism in November of 2020. 3. Obesity. 4. Back problems. 5. Status post tonsillectomy. 6. Status post nasal surgery for nasal septum deviation. PLAN: 1. Patient will continue to use PAP equipment every night for the whole night. 2. Sleep hygiene with regular time in bed for at least 7-1/2 to 8 hours. 3. Precautions related to driving. No driving if feeling sleepiness. 4. I will maintain all necessary prescription for PAP supplies including mask, tube, filters. 5. Watching weight. 6. Follow-up visit in 6 months or earlier if patient has any problems. Thank you very much for allowing me to participate in management of your patient. Sincerely, Lm Barclay MD, PhD, FAASM Diplomat of [place] [employer] [place] [employer] Business Functional Analyst of [facility] [place] MMODL / NAKULN: [id number] /
== END ==
LOC: SLEEP 11:30
PROVIDERS: ATTEND Internal Medicine
DX: G47.33 Obstructive sleep apnea (adult) (pediatric) (principal); Z99.89 Dependence on other enabling machines and devices; Z86.711 Personal history of pulmonary embolism; E66.9 Obesity, unspecified; M54.9 Dorsalgia, unspecified; Z98.890 Other specified postprocedural states

== ENCOUNTER → 2021-04-30 | Outpatient (CLI) | payer OTHER ==
[2021-04-30 16:19] LABS: HCT 42.8 % (39.0-53.0); HGB 13.7 gm/dL (13.0-17.5); Hypochromasia Slight; MCH 27.4 pg (25.0-35.0); MCHC 31.9 g/dL (31.0-37.0); MCV 85.9 fL (80.0-100.0); Mean Platelet Volume 6.7; Platelet Count 291 k/uL (150-450); RBC 4.99 m/uL (4.30-5.90); RDW 14.3 % (11.5-15.5); WBC 9.9 k/uL (3.8-10.6)
[2021-04-30 16:31] LABS: African American GFR (CKD) >90 (>60 ml/min/1.73 sqM); Anion Gap 9 mmol/L; Blood Urea Nitrogen 23 mg/dL (9-20); Carbon Dioxide 21 mmol/L (22-30); Chloride 110 mmol/L (98-107); Non-African American GFR(CKD) >90 (>60 ml/min/1.73 sqM); Potassium 4.7 mmol/L (3.5-5.1); Sodium 140 mmol/L (137-145)
== END | disposition home or self-care (01) ==
LOC: LABPAT 14:39
PROVIDERS: ATTEND Internal Medicine
DX: Z01.812 Encounter for preprocedural laboratory examination (principal); R06.02 Shortness of breath
CPT/HCPCS: 36415; 80051; 82565; 84520; 85027

== ENCOUNTER 2021-05-05 09:25 | Day surgery (SDC) | payer OTHER ==
[2021-05-01 08:39] VITALS: BMI 47.4
[~2021-05-05 09:25] MED LIST changes: +ALPRAZolam 0.25 MG TAB PO PRN; +ALPRAZolam 0.5 MG TAB PO PRN; +ASPIRIN 325 MG TAB PO STA; +ATORVASTATIN 80 MG TAB PO STA; -DEXAMETHASONE SOD PHOSPHATE 10 MG/ML 1 ML VIAL IV ONE; +HEPARIN SODIUM,PORCINE 10,000 UNIT in SODIUM CHLORIDE 0.9% 1,000 ML IRRIGATION PRN; +HEPARIN SODIUM,PORCINE 2,500 UNIT in SODIUM CHLORIDE 0.9% 250 ML IRRIGATION PRN; -HEPARIN SODIUM,PORCINE 5,000 UNIT/ML 1 ML VIAL SQ ONE; -INDOCYANINE GREEN 25 MG VIAL IV STA; -MIDAZOLAM 2 MG/2 ML VIAL IV PRN; +NITROGLYCERIN SL TABS 0.4 MG TAB SUBLINGUAL PRN; -ONDANSETRON 4 MG/2 ML VIAL IVP ONE; +SODIUM CHLORIDE 0.9% 1,000 ML in EMPTY BAG 1 BAG IV ONE; +SODIUM CITRATE 10 GM/250 ML ML IV ONE; +SODIUM CITRATE 250 ML IV SCH; -ceFAZolin 3 GM in SODIUM CHLORIDE 0.9% 100 ML IVPB ONE
[2021-05-05] MEDS ORDERED: SODIUM CHLORIDE 0.9% 1,000 ML IV ONE (09:45)
[2021-05-05] MEDS ORDERED: LIDOCAINE 1% INJ 10MG/ML (20 ML MDV) ONE (12:02)
[2021-05-05] MEDS ORDERED: fentaNYL (PF) 50 MCG/ML 2 ML AMP ONE (12:03)
[2021-05-05] MEDS: MIDAZOLAM 2 MG/2 ML VIAL IV ONE ×2 (12:10→12:14)
[2021-05-05] MEDS ORDERED: fentaNYL (PF) 50 MCG/ML 2 ML AMP IV ONE (12:11)
[2021-05-05] MEDS ORDERED: VERAPAMIL 2.5 MG/ML 2 ML AMP ONE (12:13)
[2021-05-05] MEDS ORDERED: HEPARIN SODIUM 1,000 UN/ML (10ML VL) ONE (12:14)
[2021-05-05] MEDS ORDERED: LIDOCAINE 1% INJ 10MG/ML (20 ML MDV) SQ ONE (12:14)
[2021-05-05] MEDS ORDERED: VERAPAMIL SYRINGE (5 MG/10 ML) INTRAARTER ONE (12:15)
[2021-05-05] MEDS ORDERED: HEPARIN SODIUM 1,000 UN/ML (10ML VL) IV ONE (12:19)
[2021-05-05] MEDS ORDERED: IOPAMIDOL-370 125ML BTL INJ ONE (12:33)
[2021-05-05] MEDS ORDERED: IOPAMIDOL-370 50ML BTL INJ ONE (12:33)
[2021-05-05 12:36] VITALS: RESP 16; TEMP 97.1
[2021-05-05] MEDS ORDERED: SODIUM CHLORIDE 0.9% 1,000 ML IV SCH (13:00)
[2021-05-05] MEDS ORDERED: ACETAMINOPHEN TAB 325 MG TAB ONE (16:25)
[2021-05-05 16:42] VITALS: BP 141/74; PULSE 89
--- NOTE | 2021-05-05 22:22 | P.CARDCATH ---
Description of Procedure: PROCEDURES PERFORMED: Left heart catheterization, bilateral coronary angiography, left ventriculogram INDICATION: Abnormal stress test HISTORY: Patient is a pleasant 45-year-old male with history of hypertension, hyperlipidemia, recent pulmonary embolism, obesity. Patient has been experiencing increased episodes of dyspnea and therefore stress test was performed with concern of fixed anterior perfusion defect and inferior reversible perfusion defect. He did have some improvement of his SOB with Toprol. CONSENT:I have discussed the risks, benefits and alternative therapies for the above-mentioned procedure and for both sedation/analgesia as well as necessary blood product administration, if indicated, as they pertain to this patient. The patient has indicated understanding and acceptance of the risks and procedures discussed. PROCEDURE: After the risks, benefits and alternatives of the above mentioned procedure explained in detail with the patient, informed consent was obtained. Patient was taken to the catheterization lab and prepped and draped in usual fashion. 1% lidocaine was used to anesthetize the right radial artery. There was a heparin allergy noted however allergy was that he had bruising of the belly with it before. A 6-Wallisian sheath was placed in the right radial artery using modified Seldinger technique. Left coronary angiography was performed with a 5-Wallisian JL 3.5 catheter and right coronary angiography was performed with a 5-Wallisian JR5 catheter in various views. A 5-Wallisian pigtail catheter was inserted into the left ventricle and pressure measurements were obtained. Left ventriculography was performed in the JIMENEZ projection with a power injection. The right radial sheath was removed and a TR band was placed with hemostasis achieved. The patient tolerated the procedure well. Patient was transported back to the post catheterization holding area in stable condition. Conscious Sedation: Patient was monitored under the direct supervision of vision of myself for conscious sedation using Versed and fentanyl for a total duration of 25 minutes HEMODYNAMICS: Ao: 102/70 LV: 121/5 LVEDP 13mmHg SELECTIVE CORONARY ARTERIOGRAPHY: LEFT MAIN: The left main is a large caliber vessel which bifurcates into the LAD and circumflex. There is no significant stenosis. LEFT ANTERIOR DESCENDING CORONARY ARTERY: LAD is a large caliber vessel which wraps around to the apex. There is no significant stenosis. LEFT CIRCUMFLEX CORONARY ARTERY: Left circumflex is a large caliber vessel without significant stenosis. It gives off a left PDA and is the dominant vessel. RIGHT CORONARY ARTERY: The right coronary artery is a small caliber vessel which gives off an acute marginal branch and is a non dominant vessel. There is no significant stenosis. LEFT VENTRICULOGRAPHY: Left ventricular ejection fraction is 60% without wall motion abnormalities. There is PVC induced mitral regurgitation however this improved with normal beats. There is no significant gradient with pullback across the aortic valve. FINAL IMPRESSION: 1. Normal coronary arteries as described above. 2. Normal ejection fraction 60% percent without wall motion abnormalities. 3. Normal left sided filling pressures PLAN: 1. Aggressive risk factor modification per most recent ACC/AHA guidelines. 2. Follow-up in the office in 1-2 weeks.
== END 2021-05-05 16:37 | disposition home or self-care (01) ==
LOC: CATHCVL 09:25
PROVIDERS: ATTEND Internal Medicine
DX: E78.5 Hyperlipidemia, unspecified (principal); Z82.49 Family history of ischemic heart disease and other diseases of the circulatory system; R00.2 Palpitations; Z20.822 Contact with and (suspected) exposure to COVID-19; E78.2 Mixed hyperlipidemia; G47.33 Obstructive sleep apnea (adult) (pediatric); Z86.711 Personal history of pulmonary embolism; Z86.718 Personal history of other venous thrombosis and embolism; Z79.01 Long term (current) use of anticoagulants; Z79.899 Other long term (current) drug therapy; Z88.8 Allergy status to other drugs, medicaments and biological substances
CPT/HCPCS: 93458; 87635; C1894 ×2; C1769 ×2; J2250; J2001; J3010; J1644; Q9967 ×2

== ENCOUNTER → 2021-07-30 | Outpatient (CLI) | payer OTHER ==
--- NOTE | 2021-07-30 20:56 | SFUN ---
SLEEP CENTER FOLLOW UP NOTE DATE OF SERVICE: 07/30/2021 45-year-old gentleman has been followed in Sleep Center for treatment of obstructive sleep apnea-hypopnea syndrome. The patient continues to use his CPAP equipment every night for the whole night getting his supplies in time from [employer]. [place] Sleepiness Scale today is 6. I checked CPAP unit. Range of the pressure 12-20. Average pressure 14.1. Usage is 30/30 nights for more than 4 hours, average 6.9 hours per night. Leak is 0 L/minute. Apnea-hypopnea index is only 0.3 which is absolutely perfect. MEDICATIONS: Eliquis 5 mg twice a day, Percocet 5/325 mg up to 4 times a day. Flexeril 10 mg once a day. Topamax 50 mg once a day, fenofibrate 160 mg once a day, Lipitor 40 mg once a day, metoprolol ER 25 mg once a day. PHYSICAL EXAMINATION: GENERAL: Patient in no distress. BP 107/70, HR 86, RR 12, height 5 feet 10 inches. Weight 341 pounds. Patient increased his weight on 10 pounds since previous visit. Body mass index 47.5, temperature 97.1. Oropharynx extremely low position of soft palate, Mallampati IV. NECK: Supple, no JVD. Thyroid is not palpable. LUNGS: Clear to percussion and to auscultation. Good air exchange. No wheezing or rhonchi. HEART: S1, S2 regular. No murmurs, gallops, or rubs. ABDOMEN: Obese. Soft and nontender. Bowel sounds are present. No organomegaly appreciated. EXTREMITIES: No clubbing or cyanosis. HOME APPLIANCE INSTALLER: Awake, alert, and oriented X3. Cranial nerves 2 to 7 intact. There is no fasciculation or atrophy. noted. No focal deficits observed. IMPRESSION: 1. Moderate obstructive sleep apnea-hypopnea syndrome. Patient demonstrated 100% compliance with treatment. Totally normal respiration on CPAP. 2. Obesity BMI 47.5. Patient increased his weight 10 pounds since previous. 3. Status post pulmonary embolism in November of 2020. 4. Back problems. 5. Status post tonsillectomy. 6. Status post nasal surgery for nasal septum deviation. PLAN: 1. Patient will continue to use PAP equipment every night for the whole night. 2. Sleep hygiene with regular time in bed for at least 7-1/2 to 8 hours. 3. Precautions related to driving. No driving if feeling sleepiness. 4. I will maintain all necessary prescription for PAP supplies including mask, tube, filters. 5. Watching weight. 6. Follow-up visit in 6 months or earlier if patient has any problems. Thank you very much for allowing me to participate in management of your patient. Sincerely, Lm Barclay MD, PhD, FAASM Diplomat of [place] [employer] Sleep Medicine Board of [place] [employer] New Grad Rn of [facility] [place] MMODL / IJN: [id number] /
== END | disposition home or self-care (01) ==
LOC: SLEEP 11:57
PROVIDERS: ATTEND Internal Medicine
DX: G47.33 Obstructive sleep apnea (adult) (pediatric) (principal); E66.9 Obesity, unspecified; J34.2 Deviated nasal septum; Z86.711 Personal history of pulmonary embolism; Z90.89 Acquired absence of other organs; Z68.42 Body mass index [BMI] 45.0-49.9, adult

== ENCOUNTER 2021-09-13 19:30 | Emergency (ER) | payer OTHER ==
[2021-09-13 20:22] VITALS: BP 118/62; PULSE 103; RESP 22; TEMP 98.8
[2021-09-13] MEDS ORDERED: ORPHENADRINE 30 MG/ML 2 ML VIAL IM STA (21:10)
[2021-09-13] MEDS ORDERED: KETOROLAC 15 MG/ML 1 ML VIAL IM STA (21:10)
[2021-09-13] MEDS ORDERED: LIDOCAINE 5% PATCH TOPICAL STA (22:27)
[2021-09-13] MEDS ORDERED: ACET/COD 300 MG/30 MG STARTER PACK 6 TAB BTL PO STA (22:28)
--- NOTE | 2021-09-13 22:37 | ED ---
Back Pain HPI - General Chief Complaint: Back Pain/Injury Stated Complaint: Back Pain Time Seen by Provider: 09/13/21 20:54 Source: patient, RN notes reviewed Limitations: no limitations - History of Present Illness Initial Comments: Patient is a 46-year-old male that presents to the emergency department complaining of chronic mid back pain. He notes that he was in a car taking a central doctor's appointment when it flared up. He notes that it is more muscular 19. He notes he takes Flexeril 1 time a day prior to bed. He notes that has not helped. He notes he came in to the emergency for symptomatically relief. He denied any saddle anesthesia bladder bowel incontinence or retention. He was otherwise well-appearing. 90 chest pain first breath headache nausea vomiting diarrhea constipation fever fatigue chills. - Related Data Home Medications Medication Instructions Recorded Confirmed Atorvastatin [Lipitor] 40 mg PO W/SUPPER 05/22/19 05/05/21 Fenofibrate [Lofibra] 160 mg PO W/SUPPER 05/22/19 05/05/21 Topiramate [Topamax] 50 mg PO HS 07/18/19 05/05/21 oxyCODONE-APAP 5-325MG [Percocet 1 tab PO QID 07/18/19 05/05/21 5-325 mg] Cyclobenzaprine [Flexeril] 10 mg PO HS 11/26/20 05/05/21 Apixaban [Eliquis Starter Pack 5 mg PO BID 05/01/21 05/05/21 (for VTE)] Metoprolol Succinate (ER) [Toprol 25 mg PO DAILY 05/01/21 05/05/21 Xl] Previous Rx's Medication Instructions Recorded Cyclobenzaprine HCl 10 mg PO TID 10 Days #30 tab 09/13/21 Lidocaine 5% Patch [Lidoderm 5% 1 patch TOPICAL DAILY 7 Days #7 09/13/21 Patch] patch Allergies Allergy/AdvReac Type Severity Reaction Status Date / Time heparin Allergy Unknown Verified 09/13/21 20:22 Review of Systems ROS Statement: Those systems with pertinent positive or pertinent negative responses have been documented in the HPI. ROS Other: All systems not noted in ROS Statement are negative. Past Medical History Past Medical History: Diabetes Mellitus, Hyperlipidemia, Musculoskeletal Disorder, Osteoarthritis (OA), Sleep Apnea/CPAP/BIPAP Additional Past Medical History / Comment(s): Umbilical hernia, constipation, Multiple hereditary exostosis (benign bone tumors), uses auto-pap, varicose veins. History of Any Multi-Drug Resistant Organisms: None Reported Additional Past Surgical History / Comment(s): "benign blood tumor removed from rt leg", nasal repair surg, colonoscopy Past Anesthesia/Blood Transfusion Reactions: Motion Sickness Past Psychological History: No Psychological Hx Reported Smoking Status: Never smoker Past Alcohol Use History: None Reported Past Drug Use History: None Reported - Past Family History Sister(s) Family Medical History: Cancer Mother Family Medical History: Deep Vein Thrombosis (DVT), Pulmonary Embolus General Exam Limitations: no limitations General appearance: alert, in no apparent distress, obese (Morbid) Head exam: Present: atraumatic, normocephalic, normal inspection Eye exam: Present: normal appearance, PERRL, EOMI. Absent: scleral icterus, conjunctival injection, periorbital swelling ENT exam: Present: normal exam, mucous membranes moist Neck exam: Present: normal inspection. Absent: tenderness, meningismus, lymphadenopathy Respiratory exam: Present: normal lung sounds bilaterally. Absent: respiratory distress, wheezes, rales, rhonchi, stridor Cardiovascular Exam: Present: regular rate, normal rhythm, normal heart sounds. Absent: systolic murmur, diastolic murmur, rubs, gallop, clicks GI/Abdominal exam: Present: soft, normal bowel sounds. Absent: distended, tenderness, guarding, rebound, rigid Extremities exam: Present: normal inspection, full ROM, normal capillary refill. Absent: tenderness, pedal edema, joint swelling, calf tenderness Neurological exam: Present: alert, oriented X3 Psychiatric exam: Present: normal affect, normal mood Skin exam: Present: warm, dry, intact, normal color. Absent: rash Course Vital Signs 09/13/21 20:18 Temperature 98.8 F Pulse Rate 103 H Respiratory 22 Rate Blood Pressure 118/62 O2 Sat by Pulse 99 Oximetry Medical Decision Making - Medical Decision Making 46-year-old male with chronic back pain moderately worse than usual. 15 mg of Toradol, 60 g and Norflex ordered. Upon reevaluation patient states that he is feeling mildly better. Lidocaine patch ordered. Flexeril sent to pharmacy. Case discussed with Dr. Mcgowan, patient discharge home. Disposition Clinical Impression: Strain of lumbar region, Mechanical back pain Disposition: HOME SELF-CARE Condition: Stable Instructions (If sedation given, give patient instructions): Acute Low Back Pain (ED) Additional Instructions: Please return to the Emergency Department if symptoms worsen or any other concerns. Prescriptions: Cyclobenzaprine HCl 10 mg PO TID 10 Days #30 tab Lidocaine 5% Patch [Lidoderm 5% Patch] 1 patch TOPICAL DAILY 7 Days #7 patch Is patient prescribed a controlled substance at d/c from ED?: No Referrals: Mary Duran MD [Primary Care Provider] - 1-2 days Time of Disposition: 22:37
== END 2021-09-13 22:45 | disposition home or self-care (01) ==
LOC: EC 19:30
DX: S39.012A Strain of muscle, fascia and tendon of lower back, initial encounter (principal); E11.9 Type 2 diabetes mellitus without complications; E78.5 Hyperlipidemia, unspecified; Z79.899 Other long term (current) drug therapy; Z88.8 Allergy status to other drugs, medicaments and biological substances; X58.XXXA Exposure to other specified factors, initial encounter
CPT/HCPCS: 99283; 96372; J2360; J1885

== ENCOUNTER → 2022-01-28 | Outpatient (CLI) | payer OTHER ==
--- NOTE | 2022-01-28 15:27 | SFUN ---
SLEEP CENTER FOLLOW UP NOTE DATE OF SERVICE: 01/28/2022 This 46-year-old gentleman has been followed in Sleep Center for treatment of obstructive sleep apnea-hypopnea syndrome. The patient continues to use his CPAP equipment every night for the whole night. His machine becomes noisy and may disrupt his sleep because of that. [place] Sleepiness Scale today increased to 12. I checked his CPAP unit. It is in automatic regimen. Range of the pressure 10 to 20, average pressure 12.6. RAMP is off; EPR 2. Usage is 100% of nights for more than 4 hours, average 8.1 hours per night. Great compliance. No leak at all; zero liters per minute. Apnea-hypopnea index is only 0.2, which is absolutely perfect. MEDICATIONS: 1. Eliquis 5 mg twice a day. 2. Percocet 5/325 mg 4 times a day. 3. Flexeril 10 mg at bedtime. 4. Topamax 50 mg once a day. 5. Fenofibrate 160 mg once a day. 6. Lipitor 40 mg once a day. 7. Metoprolol 25 mg once a day. PHYSICAL EXAMINATION: GENERAL: Pleasant patient in no distress. VITAL SIGNS: BP 119/79, HR 98, RR 20, weight 351 pounds. Patient gained 10 pounds. Height 5 feet 10 inches. Temperature 97.8, oxygen saturation at room air 97%. HEENT: PERRLA, EOMI, evaluation of oropharynx showed tongue protrudes midline. Extremely low position of soft palate; Mallampati IV. NECK: Supple, no JVD. Thyroid is not palpable. LUNGS: Clear to percussion and to auscultation. Good air exchange. No wheezing or rhonchi. HEART: S1, S2 regular. No murmurs, gallops, or rubs. ABDOMEN: Obese. Soft, non-tender. EXTREMITIES: No clubbing or cyanosis. CHEMICAL LABORATORY CHIEF: Awake, alert, and oriented X3. Cranial nerves 2 to 7 intact. There is no fasciculation or atrophy. noted. No focal deficits observed. IMPRESSION: 1. Obstructive sleep apnea-hypopnea syndrome. Patient demonstrated 100% compliance with treatment, benefitting from treatment. Normal respiration on CPAP. CPAP unit is noisy and old. 2. Morbid obesity. 3. Back problems. 4. Status post pulmonary embolism in November 2020. 5. Status post tonsillectomy. 6. Status post surgical treatment for nasal septum deviation. PLAN: 1. Prescription for new AutoPAP unit, parameters the same as before. Pressure in the range 10 to 20 cm of water. EPR 2. 2. Patient will continue to use PAP equipment every night for the whole night. 3. Sleep hygiene with regular time in bed for at least 7-1/2 to 8 hours. 4. Precautions related to driving. No driving if feeling sleepiness. 5. I will maintain all necessary prescription for PAP supplies including mask, tube, filters. 6. Watching weight. 7. Follow-up visit in 30 to 90 days after the patient gets his new machine to evaluate his compliance and clinical response on treatment with the new CPAP unit. Thank you very much for allowing me to participate in the management of your patient. Sincerely, Lm Barclay MD, PhD, FAASM Diplomat of [employer] Sleep Medicine Board of [employer] [facility] [place] MMODL / NAKULN: [id number] /
== END | disposition home or self-care (01) ==
LOC: SLEEP 10:24
PROVIDERS: ATTEND Internal Medicine
DX: G47.33 Obstructive sleep apnea (adult) (pediatric) (principal); E66.01 Morbid (severe) obesity due to excess calories; Z86.711 Personal history of pulmonary embolism; Z90.89 Acquired absence of other organs

== ENCOUNTER → 2023-09-15 | Outpatient (CLI) | payer OTHER ==
[2023-09-15 12:48] VITALS: BP 122/65; PULSE 96; RESP 15; TEMP 98.9
--- NOTE | 2023-09-15 15:06 | P.PAINPG ---
PQRS Measure Charge Sheet Comment: HISTORY OF PRESENT ILLNESS: A 48 yr old male as a referral from Dr Woodall presents today w severe and chronic LBP x 1 yr secondary to Hereditary Exostoses for evaluation. Pt states pain level is provoked at 8/10 in intensity, constant, generalized in the spine, shoulders and long bones, achy in character without shooting pain. Pain is provoked by weight bearing activity. Pain is alleviated by medications (Percocet, Ibuprofen), use of a cane for ambulatory assistance, repositioning and rest. PMH: OA, DM II, Hyperlipidemia, ÁLVARO PSH: Umbilical Hernia Repair, Multiple Hereditary Exostoses (Benign Bone Tumors), RLE Surgery, Nasal Repair Surgery, Colonoscopy SH: Negative x3 FH: Mo- DVT/ PE. Sis- CA. All: See list Meds: See list REVIEW OF ORGAN SYSTEMS: CONSTITUTIONAL: No fevers or chills. No recent weight loss. NEUROLOGICAL: + numbness and tingling along the distal extremities. No seizure disorders or headaches. MUSCULOSKELETAL: + pain PSYCHIATRIC: Denies current depression or suicidal thoughts. Physical Examinations : Constitutional : Cooperative , not in acute distress . Neurologic : Cranial nerve II to XII intact. No focal neurological deficits. Psychiatric : alert & oriented x 3. Matching mood & appropriate affect. Judgment & insight intact. Musculoskeletal : Cervical Spine Motor strength in the deltoid and biceps: Normal right side. Normal Left side Motor strength biceps and the wrist extensors: Normal right side . Normal left side Motor strength in the triceps muscle: Normal right side. Normal left side Deep tendon reflexes: Normal at the biceps. Normal at Brachioradialis. Normal at triceps Vertebral body tenderness to deep palpation over Cervical facet loading test: positive b ilaterally Spurling test: positive bilaterally Neck distraction test: positive bilaterally Reddy sign: positive bilaterally Lumbar spine Motor strength lower extremities ,thigh and legs 5/5 Right side , 5/5 Left side Deep tendon reflexes : Normal Knee Jerk. Normal Ankle Jerk Vertebral body tenderness over Griffin Test positive Lumbar facet Loading Test: positive Right / positive Left Range of motion of the lumbar spine Flexion 30 degrees, extension 10 degrees Straight Leg Raise test: Left/ Right positive at degree Vanessa test: positive right / positive left. Severe tenderness over the Sacroiliac joint on the Right / Left sides Gaenslen test: positive bilaterally Seated flexion test: positive bilaterally. Sacral spine : Severe tenderness over the Sacroiliac joint: right side / left side Range of motion: Flexion of the lumbar spine <60 degrees Range of motion: Extension of the lumbar spine <20 degrees Gaenslen's Test positive Vanessa test: positive right side / left side Thigh Thrust Test Sacral Thrust Test Imaging: None on file Assessment/ Plan : Hereditary Exostoses Recommendation of followup w Hem/Onc for further treatment. Pt stated he is established w one. All questions answered. I have spent greater than 30 minutes on patient care today. Dr Lanza was available by phone for the evaluation of this patient. The time was used to review the medical records including relevant urine studies and Prescription his tory (MAPs), review of the available imaging, evaluation and examination of the patient, coordination of care with the medical staff and if applicable referring physicians, as well as creation of the medical record PQRS Narrative: Smoking Status Never smoker Home Medications: Ambulatory Orders Atorvastatin [Lipitor] 40 mg PO W/SUPPER 05/22/19 Fenofibrate [Lofibra] 160 mg PO W/SUPPER 05/22/19 Topiramate [Topamax] 50 mg PO HS 07/18/19 oxyCODONE-APAP 5-325MG [Percocet 5-325 mg] 1 tab PO QID 07/18/19 Cyclobenzaprine [Flexeril] 10 mg PO HS 11/26/20 Apixaban [Eliquis Starter Pack (for VTE)] 5 mg PO BID 05/01/21 Metoprolol Succinate (ER) [Toprol Xl] 25 mg PO DAILY 05/01/21 Cyclobenzaprine HCl 10 mg PO TID 10 Days #30 tab 09/13/21 Lidocaine 5% Patch [Lidoderm 5% Patch] 1 patch TOPICAL DAILY 7 Days #7 patch 09/13/21 Controlled Substance Measures - Controlled Substance Measures Is patient prescribed a controlled substance at discharge?: No
== END ==
LOC: PNWHC3 11:14
PROVIDERS: ATTEND Specialist
DX: M19.90 Unspecified osteoarthritis, unspecified site (principal); E11.9 Type 2 diabetes mellitus without complications; E78.5 Hyperlipidemia, unspecified; G47.33 Obstructive sleep apnea (adult) (pediatric); M54.50 Low back pain, unspecified; Q78.6 Multiple congenital exostoses; Z88.8 Allergy status to other drugs, medicaments and biological substances; Z79.01 Long term (current) use of anticoagulants
CPT/HCPCS: 99211

== ENCOUNTER → 2023-11-17 | Outpatient (CLI) | payer OTHER ==
--- NOTE | 2023-11-17 16:17 | P.PN ---
Subjective DATE: 11/17/2023 FOLLOW UP VISIT. Patient with obstructive sleep apnea hypopnea syndrome return to sleep center for follow-up visit. Information from previous visit have been reviewed. Patient is using PAP equipment every night for the whole night, getting PAP supplies in time. The patient does not have significant problems with the mask, PAP unit and humidification. [place] sleepiness scale is 10, which is borderline. I checked information from PAP unit. PAP unit pressure 10-20, average 12.0 cm H2O. Usage is 100 % for more then 4 hours, average 7.5 hours per night. Leak is 0 l/m, which is perfect. Apnea Hypopnea Index is 0.2, which is normal. MEDICATIONS:1.. Eliquis 2.5 mg twice a day 2.. Percocet 3. Cyclobenzaprine 10 mg once a day 4. Topamax 50 mg once a day 5. Fenofibrate 160 mg once a day 6. Lipitor 40 mg once a day 7. Metoprolol extended release 25 mg once a day 8. Victoza 9. Lisinopril 2.5 mg once a day During physical exam: GENERAL: A pleasant patient without any distress. VITAL SIGNS: BP 133/84, HR 98, RR 16, weight 352.2, temperature 98.0, oxygen saturation at room air 98 % . HEENT: PERRLA, EOMI.low position of soft palate, Mallapati 4 . NECK: Supple. No JVD. LUNGS: Clear to percussion and to auscultation. Good air exchange. No wheezing or rhonchi. HEART: S1, S2 regular. ABDOMEN: Soft and nontender. Obese EXTREMITIES: No clubbing or cyanosis. EDUCATIONAL INSTITUTION CURATOR: Awake, alert, and oriented x3. No focal deficit. Impressions: 1. Obstructive sleep apnea-hypopnea syndrome. Patient demonstrated great compliance with treatment, benefiting from treatment. 2. Obesity, BMI 51.9. 3. Status post pulmonary embolism in November 2020. 4. Status post tonsillectomy. 5. Status post surgical treatment for nasal septum deviation. 6. Back problems. Plan: 1. Continue using PAP equipment every night for the whole night. 2. To change air filter at least 1-2 times per month. 3. PAP unit should stay lower then position of the head. 4. Advised patient to remove all remaining water from humidifier canister daily and make it dry after each usage. Refill canister with fresh distilled water before each usage. 5. Sleep hygiene with regular time in bed for at least 8 hours. 6. Precautions related to driving. No driving if feel any sleepiness. 7. I will maintain prescription for PAP supplies including mask, tube, filters. 8. Follow up visit in 6 months or earlier if patient has any problems. 9. Watching and agressive losing weight. Thank you very much for allowing me to participate in the management of your patient. Lm Barclay MD, PhD, FAASM. Diplomat of [employer] [employer], Sleep Medicine Board by [employer] Finished [employer] [facility] Reading
== END ==
LOC: 3 N SLEEP 15:28
PROVIDERS: ATTEND Internal Medicine
DX: G47.33 Obstructive sleep apnea (adult) (pediatric) (principal); E66.9 Obesity, unspecified; Z86.711 Personal history of pulmonary embolism; Z98.890 Other specified postprocedural states; J34.2 Deviated nasal septum; Z99.89 Dependence on other enabling machines and devices; Z68.43 Body mass index [BMI] 50.0-59.9, adult; Z79.899 Other long term (current) drug therapy; Z88.8 Allergy status to other drugs, medicaments and biological substances
CPT/HCPCS: 99212